=== PATIENT | female | born 2000 ===

== ENCOUNTER 2022-06-24 12:35 | Emergency (ER) | payer OTHER, SELFPAY ==
--- NOTE | ~2022-06-24 | XR_ITS ---
EXAMINATION: XR CHEST CLINICAL INFORMATION: Shortness of breath COMPARISON: None TECHNIQUE: 2 views of the chest were obtained. FINDINGS: Cardiac silhouette is normal in size. The lungs are well aerated. There is no lobar consolidation. No pleural effusion or pneumothorax. No acute osseous abnormality. XR/XR chest 2V IMPRESSION: No acute pulmonary pathology.
--- NOTE | 2022-06-24 12:44 | ED_ITS ---
HPI - SOB/Dyspnea General Chief Complaint: Dyspnea <ASHIA Pulliam - Last Filed: 06/24/22 12:52> Stated Complaint: SOB <ASHIA Pulliam - Last Filed: 06/24/22 12:52> Time Seen by Provider: 06/24/22 15:40 <ASHIA Pulliam - Last Filed: 06/24/22 12:52> Source: patient <Maria Ines Perry NP - Last Filed: 06/24/22 18:49> Mode of arrival: ambulatory <Maria Ines Perry NP - Last Filed: 06/24/22 18:49> Limitations: no limitations <Maria Ines Perry NP - Last Filed: 06/24/22 18:49> History of Present Illness HPI Narrative: 21-year-old female no significant past medical history presents to the emergency department with complaints of a 1 year history of shortness of breath. She has previously seen her primary care provider for this same complaint and ruled out for pulmonary disease. She was started on Wellbutrin for treatment of possible anxiety with no relief of symptoms per patient. She states her difficulty in breathing worsens at night causing her difficulty with sleeping. She denies sensation of waking and needing to catch her breath during the night. She denies excessive daytime sleepiness. She denies headache, vision changes, chest pain, nausea, vomiting, diarrhea, constipation, fever, chills. <Maria Ines Perry NP - Last Filed: 06/24/22 18:49> MD elicited complaint: shortness of breath <Maria Ines Perry NP - Last Filed: 06/24/22 18:49> Onset (ago): year(s) <Maria Ines Perry NP - Last Filed: 06/24/22 18:49> Timing: constant <Maria Ines Perry NP - Last Filed: 06/24/22 18:49> Severity: mild <Maria Ines Perry NP - Last Filed: 06/24/22 18:49> Exacerbating factors: lying flat <Maria Ines Perry NP - Last Filed: 06/24/22 18:49> Relieving factors: nothing <Maria Ines Perry NP - Last Filed: 06/24/22 18:49> Associated symptoms: denies other symptoms <Maria Ines Perry NP - Last Filed: 06/24/22 18:49> Treatment prior to arrival: none <Maria Ines Perry NP - Last Filed: 06/24/22 18:49> Related Data Home Medications: Previous Rx's Medication Instructions Recorded hydroxyzine HCl 25 mg tablet 25 mg PO QID PRN anxiety #9 tabs 06/24/22 <ASHIA Pulliam - Last Filed: 06/24/22 12:52> Allergies/Adverse Reactions: Allergies Allergy/AdvReac Type Severity Reaction Status Date / Time No Known Allergies Allergy Unverified 03/03/20 19:17 [No Known Allergies*] <ASHIA Pulliam - Last Filed: 06/24/22 12:52> Review of Systems Review of Systems: In addition to documented HPI above, the additional ROS was obtained: Constitutional: No Weight loss, No Fever, No Chills ENT/Mouth: No Ear Pain, No Nasal Congestion, No Sinus Pain, No Hoarseness, No sore throat, No Rhinorrhea, No Swallowing Difficulty Cardiovascular: No Chest Pain Respiratory: No Cough, No Sputum, No Wheezing Gastrointestinal: No Nausea, No Vomiting, No Diarrhea, No Constipation, No Abdominal pain Genitourinary: No Dysuria, No Urinary Frequency, No Hematuria, No Urinary Incontinence/retention, No Urgency, No Flank Pain Musculoskeletal: No joint pain, No Myalgias, No Joint Swelling Skin: No Skin Lesions, No rash Neuro: No Weakness, No Numbness, No Paresthesias <Maria Ines Perry NP - Last Filed: 06/24/22 18:49> Yes all other systems are reviewed and are negative <Maria Ines Perry NP - Last Filed: 06/24/22 18:49> PMF Past Medical History Attestation statement: The following information was validated with the patient. <Maria Ines Perry NP - Last Filed: 06/24/22 18:49> Source: old records reviewed <Maria Ines Perry NP - Last Filed: 06/24/22 18:49> Social History Social History: Social History Advance Directives: No Advance Directives Information Provided: No <ASHIA Pulliam - Last Filed: 06/24/22 12:52> Physical Exam Vital Signs: Vital Signs: Last Vital Signs Temp 98.2 F 06/24/22 15:42 Pulse 81 06/24/22 15:42 Resp 16 06/24/22 15:42 BP 109/68 06/24/22 15:42 Pulse Ox 99 06/24/22 15:42 O2 Del Method 06/24/22 15:42 BMI result Body Mass Index 25.7 <ASHIA Pulliam - Last Filed: 06/24/22 12:52> Vital Signs: Last Vital Signs Temp 98.2 F 06/24/22 15:42 Pulse 81 06/24/22 15:42 Resp 16 06/24/22 15:42 BP 109/68 06/24/22 15:42 Pulse Ox 99 06/24/22 15:42 O2 Del Method 06/24/22 15:42 BMI result Body Mass Index 25.7 <Maria Ines Perry NP - Last Filed: 06/24/22 18:49> Nursing notes and vital signs reviewed. GENERAL APPEARANCE: A&0 x 4, generally well appearing, no acute distress HENMT: Normal to inspection, atraumatic, face symmetrical. Normal external ears, nose, and oropharynx clear. EYE: PERRLA, EOM intact, structures appear normal NECK: Supple without lymphadenopathy. No stiffness or restricted ROM. CHEST: Normal to inspection HEART: Normal rate and regular rhythm, normal S1/S2, no M/R/G LUNGS: LS CTA, moving air well. Able to speak in complete sentences. No crackles, wheezes, or rhonchi auscultated ABDOMEN: Soft, nontender, nondistended. Normal bowel sounds noted BACK: No CVAT, no obvious deformity EXTREMITIES: Moving all extremities without difficulty. No cyanosis, clubbing, or edema. Normal capillary refill. NEUROLOGICAL: Alert and oriented, moving all 4 extremities with equal strength. CN not formally tested but appearing grossly intact. Observed to ambulate with normal gait. Cognition normal SKIN: Warm and dry without any lesions, rash, or visible sores PSYCH: Cooperative, normal affect, normal thought process <Maria Ines Perry NP - Last Filed: 06/24/22 18:49> Course Course Course Narrative: TOLU-12:45PM - 21yoF presenting to the ED c c/o of SOB x months. Associated Chest Pain, fast heart rate. Went to PCP in the past and had pulmonary testing asthma and was told it was not asthma. Then placed on meds for Wellbutrin for anxiety. Worse at night making unable to sleep. Denies dizziness, sputum production or leg swelling. On the Depo Shot for Control. Was using nicotine otherwise no other drugs. Patient requesting ultrasound of her Heart. Plan: COVID/RSV/flu swab, chest x-ray, EKG, labs all ordered at this time. Patient is stable to go back to the waiting room to be evaluated in the ED. <ASHIA Pulliam - Last Filed: 06/24/22 12:52> Medications Administered Discontinued Medications Generic Name Dose Route Start Last Admin Trade Name Freq PRN Reason Stop Dose Admin Hydroxyzine HCl 25 mg 06/24/22 16:05 06/24/22 16:40 Hydroxyzine Hcl 25 Mg Tablet PO 06/24/22 16:06 25 mg ONCE ONE Administration <ASHIA Pulliam - Last Filed: 06/24/22 12:52> Medications Administered Discontinued Medications Generic Name Dose Route Start Last Admin Trade Name Freq PRN Reason Stop Dose Admin Hydroxyzine HCl 25 mg 06/24/22 16:05 06/24/22 16:40 Hydroxyzine Hcl 25 Mg Tablet PO 06/24/22 16:06 25 mg ONCE ONE Administration <Maria Ines Perry NP - Last Filed: 06/24/22 18:49> Medical Decision Making Medical Decision Making [facility] Narrative: 21-year-old female no significant past medical history presents to the emergency department with complaints of a 1 year history of shortness of breath. She has previously seen her primary care provider for this same complaint and ruled out for pulmonary disease. She was started on Wellbutrin for treatment of possible anxiety with no relief of symptoms per patient. She states her difficulty in breathing worsens at night causing her difficulty with sleeping. Blood work and serology unremarkable. Chest x-ray showing no acute pulmonary pathology, cardiac silhouette is normal in size with lungs well aerated, and no pleural effusion or pneumothorax. EKG normal sinus rhythm at 76 beats per minute. History, physical, and diagnostic exams consistent with acute anxiety. H ydroxyzine 25 mg given for anxiety symptoms with moderate effect in relief of shortness of breath. Low suspicion for ACS or PE at this time. Patient is safe for discharge at this time with plans to continue hydroxyzine 25 mg 4 times a day as needed and recommendation for mental health counseling. HPI, PE, diagnostics, and plan discussed with patient and family with no unanswered questions at this time. Patient educated to return to the emergency department with new, worsening, or concerning emergent symptoms. Recommended to follow-up with her primary care provider and mental health counselor for further treatment and management. *Refer to Course for additional information on consultations, diagnostic interpretation, consultations, emergency department stay, conversations with patient and family, shared decision making with patient, and more information on medical decision making* <Maria Ines Perry NP - Last Filed: 06/24/22 18:49> Lab Data MDM Lab Attestation statement: I reviewed the patient's lab results. <Maria Ines Perry NP - Last Filed: 06/24/22 18:49> Result Diagrams: 06/24/22 14:21 06/24/22 14:20 <ASHIA Pulliam - Last Filed: 06/24/22 12:52> Labs: Lab Results 06/24/22 06/24/22 06/24/22 Range/Units 14:20 14:20 14:20 WBC (4.8-10.8) X10*3/uL RBC (4.20-5.50) X10*6/uL Hgb (12.0-16.0) g/dl Hct (37.0-47.0) % MCV (80.0-98.0) fL MCH (27.0-33.0) pg MCHC (31.0-35.0) g/dl RDW (11.0-16.0) % Plt Count (160-400) X10*3/uL MPV (9.4-12.3) fL Immature Gran % (Auto) (0.0-0.4) % Neut % (Auto) (45-73) % Lymph % (Auto) (20-40) % [place] % (Auto) (2-11) % Eos % (Auto) (0-4) % Baso % (Auto) (0-2) % Lymph # (Auto) (1.2-4.9) X10*3/uL [place] # (Auto) (0.1-1.2) X10*3/uL Eos # (Auto) (0.0-0.4) X10*3/uL Baso # (Auto) (0.0-0.2) X10*3/uL Abs Immat Gran (auto) (0.00-0.03) X10*3/uL Absolute Neuts (auto) (2.0-8.3) x10*3/uL Absolute Nucleated RBC (0.0-0.012) X10*3/uL Nucleated RBC % (auto) (0.0-0.2) /100WBC PT (10.0-13.1) SEC INR (0.9-1.1) Sodium 141 (135-145) mmol/L Potassium 4.3 (3.3-5.1) mmol/L Chloride 111 H (96-108) mmol/L Carbon Dioxide 22 (22-29) mmol/L Anion Gap 12 (12-20) BUN 15 (9-16) mg/dL Creatinine 0.75 (0.5-1.4) mg/dL Estim Creat Clear Calc 108.1 Estimated GFR > 60 Random Glucose 80 (60-115) mg/dL Calcium 9.0 (8.4-10.2) mg/dL Magnesium 2.1 (1.6-2.6) mg/dL Total Bilirubin 0.3 (0.0-1.0) mg/dL AST 22 (5-31) U/L ALT 15 (0-31) U/L Alkaline Phosphatase 66 (39-117) U/L Troponin I High Sens < 3.5 (<3.5-17.0) ng/L B-Natriuretic Peptide (<100) pg/mL Total Protein 7.2 (6.5-8.0) g/dL Albumin 4.3 (3.5-5.0) g/dL Lipase 21 (8-78) U/L TSH (0.32-4.0) uIU/mL Beta HCG, Quant mIU/mL Influenza Type A (PCR) NEGATIVE (Negative) Influenza Type B (PCR) NEGATIVE (Negative) RSV RNA Qual (PCR) NEGATIVE (Negative) SARS-CoV-2 RNA (RT-PCR) NEGATIVE (Negative) 06/24/22 06/24/22 06/24/22 Range/Units 14:20 14:20 14:20 WBC (4.8-10.8) X10*3/uL RBC (4.20-5.50) X10*6/uL Hgb (12.0-16.0) g/dl Hct (37.0-47.0) % MCV (80.0-98.0) fL MCH (27.0-33.0) pg MCHC (31.0-35.0) g/dl RDW (11.0-16.0) % Plt Count (160-400) X10*3/uL MPV (9.4-12.3) fL Immature Gran % (Auto) (0.0-0.4) % Neut % (Auto) (45-73) % Lymph % (Auto) (20-40) % [place] % (Auto) (2-11) % Eos % (Auto) (0-4) % Baso % (Auto) (0-2) % Lymph # (Auto) (1.2-4.9) X10*3/uL [place] # (Auto) (0.1-1.2) X10*3/uL Eos # (Auto) (0.0-0.4) X10*3/uL Baso # (Auto) (0.0-0.2) X10*3/uL Abs Immat Gran (auto) (0.00-0.03) X10*3/uL Absolute Neuts (auto) (2.0-8.3) x10*3/uL Absolute Nucleated RBC (0.0-0.012) X10*3/uL Nucleated RBC % (auto) (0.0-0.2) /100WBC PT (10.0-13.1) SEC INR (0.9-1.1) Sodium (135-145) mmol/L Potassium (3.3-5.1) mmol/L Chloride (96-108) mmol/L Carbon Dioxide (22-29) mmol/L Anion Gap (12-20) BUN (9-16) mg/dL Creatinine (0.5-1.4) mg/dL Estim Creat Clear Calc Estimated GFR Random Glucose (60-115) mg/dL Calcium (8.4-10.2) mg/dL Magnesium (1.6-2.6) mg/dL Total Bilirubin (0.0-1.0) mg/dL AST (5-31) U/L ALT (0-31) U/L Alkaline Phosphatase (39-117) U/L Troponin I High Sens (<3.5-17.0) ng/L B-Natriuretic Peptide 17 (<100) pg/mL Total Protein (6.5-8.0) g/dL Albumin (3.5-5.0) g/dL Lipase (8-78) U/L TSH 0.73 (0.32-4.0) uIU/mL Beta HCG, Quant < 2 mIU/mL Influenza Type A (PCR) (Negative) Influenza Type B (PCR) (Negative) RSV RNA Qual (PCR) (Negative) SARS-CoV-2 RNA (RT-PCR) (Negative) 06/24/22 06/24/22 Range/Units 14:21 14:21 WBC 4.5 L (4.8-10.8) X10*3/uL RBC 4.58 (4.20-5.50) X10*6/uL Hgb 14.0 (12.0-16.0) g/dl Hct 41.5 (37.0-47.0) % MCV 90.6 (80.0-98.0) fL MCH 30.6 (27.0-33.0) pg MCHC 33.7 (31.0-35.0) g/dl RDW 11.9 (11.0-16.0) % Plt Count 190 (160-400) X10*3/uL MPV 10.5 (9.4-12.3) fL Immature Gran % (Auto) 0.2 (0.0-0.4) % Neut % (Auto) 52.1 (45-73) % Lymph % (Auto) 39.6 (20-40) % [place] % (Auto) 6.4 (2-11) % Eos % (Auto) 1.3 (0-4) % Baso % (Auto) 0.4 (0-2) % Lymph # (Auto) 1.8 (1.2-4.9) X10*3/uL [place] # (Auto) 0.3 (0.1-1.2) X10*3/uL Eos # (Auto) 0.1 (0.0-0.4) X10*3/uL Baso # (Auto) 0.0 (0.0-0.2) X10*3/uL Abs Immat Gran (auto) 0.01 (0.00-0.03) X10*3/uL Absolute Neuts (auto) 2.3 (2.0-8.3) x10*3/uL Absolute Nucleated RBC 0.000 (0.0-0.012) X10*3/uL Nucleated RBC % (auto) 0.0 (0.0-0.2) /100WBC PT 11.7 (10.0-13.1) SEC INR 1.0 (0.9-1.1) Sodium (135-145) mmol/L Potassium (3.3-5.1) mmol/L Chloride (96-108) mmol/L Carbon Dioxide (22-29) mmol/L Anion Gap (12-20) BUN (9-16) mg/dL Creatinine (0.5-1.4) mg/dL Estim Creat Clear Calc Estimated GFR Random Glucose (60-115) mg/dL Calcium (8.4-10.2) mg/dL Magnesium (1.6-2.6) mg/dL Total Bilirubin (0.0-1.0) mg/dL AST (5-31) U/L ALT (0-31) U/L Alkaline Phosphatase (39-117) U/L Troponin I High Sens (<3.5-17.0) ng/L B-Natriuretic Peptide (<100) pg/mL Total Protein (6.5-8.0) g/dL Albumin (3.5-5.0) g/dL Lipase (8-78) U/L TSH (0.32-4.0) uIU/mL Beta HCG, Quant mIU/mL Influenza Type A (PCR) (Negative) Influenza Type B (PCR) (Negative) RSV RNA Qual (PCR) (Negative) SARS-CoV-2 RNA (RT-PCR) (Negative) <ASHIA Pulliam - Last Filed: 06/24/22 12:52> Lab Results 06/24/22 06/24/22 06/24/22 Range/Units 14:20 14:20 14:20 WBC (4.8-10.8) X10*3/uL RBC (4.20-5.50) X10*6/uL Hgb (12.0-16.0) g/dl Hct (37.0-47.0) % MCV (80.0-98.0) fL MCH (27.0-33.0) pg MCHC (31.0-35.0) g/dl RDW (11.0-16.0) % Plt Count (160-400) X10*3/uL MPV (9.4-12.3) fL Immature Gran % (Auto) (0.0-0.4) % Neut % (Auto) (45-73) % Lymph % (Auto) (20-40) % [place] % (Auto) (2-11) % Eos % (Auto) (0-4) % Baso % (Auto) (0-2) % Lymph # (Auto) (1.2-4.9) X10*3/uL [place] # (Auto) (0.1-1.2) X10*3/uL Eos # (Auto) (0.0-0.4) X10*3/uL Baso # (Auto) (0.0-0.2) X10*3/uL Abs Immat Gran (auto) (0.00-0.03) X10*3/uL Absolute Neuts (auto) (2.0-8.3) x10*3/uL Absolute Nucleated RBC (0.0-0.012) X10*3/uL Nucleated RBC % (auto) (0.0-0.2) /100WBC PT (10.0-13.1) SEC INR (0.9-1.1) Sodium 141 (135-145) mmol/L Potassium 4.3 (3.3-5.1) mmol/L Chloride 111 H (96-108) mmol/L Carbon Dioxide 22 (22-29) mmol/L Anion Gap 12 (12-20) BUN 15 (9-16) mg/dL Creatinine 0.75 (0.5-1.4) mg/dL Estim Creat Clear Calc 108.1 Estimated GFR > 60 Random Glucose 80 (60-115) mg/dL Calcium 9.0 (8.4-10.2) mg/dL Magnesium 2.1 (1.6-2.6) mg/dL Total Bilirubin 0.3 (0.0-1.0) mg/dL AST 22 (5-31) U/L ALT 15 (0-31) U/L Alkaline Phosphatase 66 (39-117) U/L Troponin I High Sens < 3.5 (<3.5-17.0) ng/L B-Natriuretic Peptide (<100) pg/mL Total Protein 7.2 (6.5-8.0) g/dL Albumin 4.3 (3.5-5.0) g/dL Lipase 21 (8-78) U/L TSH (0.32-4.0) uIU/mL Beta HCG, Quant mIU/mL Influenza Type A (PCR) NEGATIVE (Negative) Influenza Type B (PCR) NEGATIVE (Negative) RSV RNA Qual (PCR) NEGATIVE (Negative) SARS-CoV-2 RNA (RT-PCR) NEGATIVE (Negative) 06/24/22 06/24/22 06/24/22 Range/Units 14:20 14:20 14:20 WBC (4.8-10.8) X10*3/uL RBC (4.20-5.50) X10*6/uL Hgb (12.0-16.0) g/dl Hct (37.0-47.0) % MCV (80.0-98.0) fL MCH (27.0-33.0) pg MCHC (31.0-35.0) g/dl RDW (11.0-16.0) % Plt Count (160-400) X10*3/uL MPV (9.4-12.3) fL Immature Gran % (Auto) (0.0-0.4) % Neut % (Auto) (45-73) % Lymph % (Auto) (20-40) % [place] % (Auto) (2-11) % Eos % (Auto) (0-4) % Baso % (Auto) (0-2) % Lymph # (Auto) (1.2-4.9) X10*3/uL [place] # (Auto) (0.1-1.2) X10*3/uL Eos # (Auto) (0.0-0.4) X10*3/uL Baso # (Auto) (0.0-0.2) X10*3/uL Abs Immat Gran (auto) (0.00-0.03) X10*3/uL Absolute Neuts (auto) (2.0-8.3) x10*3/uL Absolute Nucleated RBC (0.0-0.012) X10*3/uL Nucleated RBC % (auto) (0.0-0.2) /100WBC PT (10.0-13.1) SEC INR (0.9-1.1) Sodium (135-145) mmol/L Potassium (3.3-5.1) mmol/L Chloride (96-108) mmol/L Carbon Dioxide (22-29) mmol/L Anion Gap (12-20) BUN (9-16) mg/dL Creatinine (0.5-1.4) mg/dL Estim Creat Clear Calc Estimated GFR Random Glucose (60-115) mg/dL Calcium (8.4-10.2) mg/dL Magnesium (1.6-2.6) mg/dL Total Bilirubin (0.0-1.0) mg/dL AST (5-31) U/L ALT (0-31) U/L Alkaline Phosphatase (39-117) U/L Troponin I High Sens (<3.5-17.0) ng/L B-Natriuretic Peptide 17 (<100) pg/mL Total Protein (6.5-8.0) g/dL Albumin (3.5-5.0) g/dL Lipase (8-78) U/L TSH 0.73 (0.32-4.0) uIU/mL Beta HCG, Quant < 2 mIU/mL Influenza Type A (PCR) (Negative) Influenza Type B (PCR) (Negative) RSV RNA Qual (PCR) (Negative) SARS-CoV-2 RNA (RT-PCR) (Negative) 06/24/22 06/24/22 Range/Units 14:21 14:21 WBC 4.5 L (4.8-10.8) X10*3/uL RBC 4.58 (4.20-5.50) X10*6/uL Hgb 14.0 (12.0-16.0) g/dl Hct 41.5 (37.0-47.0) % MCV 90.6 (80.0-98.0) fL MCH 30.6 (27.0-33.0) pg MCHC 33.7 (31.0-35.0) g/dl RDW 11.9 (11.0-16.0) % Plt Count 190 (160-400) X10*3/uL MPV 10.5 (9.4-12.3) fL Immature Gran % (Auto) 0.2 (0.0-0.4) % Neut % (Auto) 52.1 (45-73) % Lymph % (Auto) 39.6 (20-40) % [place] % (Auto) 6.4 (2-11) % Eos % (Auto) 1.3 (0-4) % Baso % (Auto) 0.4 (0-2) % Lymph # (Auto) 1.8 (1.2-4.9) X10*3/uL [place] # (Auto) 0.3 (0.1-1.2) X10*3/uL Eos # (Auto) 0.1 (0.0-0.4) X10*3/uL Baso # (Auto) 0.0 (0.0-0.2) X10*3/uL Abs Immat Gran (auto) 0.01 (0.00-0.03) X10*3/uL Absolute Neuts (auto) 2.3 (2.0-8.3) x10*3/uL Absolute Nucleated RBC 0.000 (0.0-0.012) X10*3/uL Nucleated RBC % (auto) 0.0 (0.0-0.2) /100WBC PT 11.7 (10.0-13.1) SEC INR 1.0 (0.9-1.1) Sodium (135-145) mmol/L Potassium (3.3-5.1) mmol/L Chloride (96-108) mmol/L Carbon Dioxide (22-29) mmol/L Anion Gap (12-20) BUN (9-16) mg/dL Creatinine (0.5-1.4) mg/dL Estim Creat Clear Calc Estimated GFR Random Glucose (60-115) mg/dL Calcium (8.4-10.2) mg/dL Magnesium (1.6-2.6) mg/dL Total Bilirubin (0.0-1.0) mg/dL AST (5-31) U/L ALT (0-31) U/L Alkaline Phosphatase (39-117) U/L Troponin I High Sens (<3.5-17.0) ng/L B-Natriuretic Peptide (<100) pg/mL Total Protein (6.5-8.0) g/dL Albumin (3.5-5.0) g/dL Lipase (8-78) U/L TSH (0.32-4.0) uIU/mL Beta HCG, Quant mIU/mL Influenza Type A (PCR) (Negative) Influenza Type B (PCR) (Negative) RSV RNA Qual (PCR) (Negative) SARS-CoV-2 RNA (RT-PCR) (Negative) <MariaI nes Perry NP - Last Filed: 06/24/22 18:49> Independent Interpretation I performed an independent interpretation of an: EKG <Maria Ines Perry NP - Last Filed: 06/24/22 18:49> Interpretation: I have independently interpreted the EKG as normal sinus rhythm at 76 beats per minute. Vent. Rate : 076 BPM ? ? Atrial Rate : 076 BPM ?? P-R Int : 114 ms? QRS Dur : 080 ms ? ? QT Int : 382 ms ? ? ? P-R-T Axes : 064 071 034 degrees ?? QTc Int : 429 ms ? Normal sinus rhythm Normal ECG No previous ECGs available <Maria Ines Perry NP - Last Filed: 06/24/22 18:49> Radiology Impression Discussion of test interpretation with radiology: I have reviewed the radiologist's reading. <Maria Ines Perry NP - Last Filed: 06/24/22 18:49> Radiologist Impression: Have independently reviewed the chest x-ray showing no cardiopulmonary pathology. EXAMINATION: XR CHEST CLINICAL INFORMATION: Shortness of breath COMPARISON: None TECHNIQUE: 2 views of the chest were obtained. FINDINGS: Cardiac silhouette is normal in size. The lungs are well aerated. There is no lobar consolidation. No pleural effusion or pneumothorax. No acute osseous abnormality. XR/XR chest 2V IMPRESSION: No acute pulmonary pathology. ? Dictated By: Yrn Lala MD Signed By: <Electronically signed by Yrn Lala MD in OV> 06/24/22 1342 DD/ 1302 TD/TT:? Change Coordinator: PD <Maria Ines Perry NP - Last Filed: 06/24/22 18:49> Discharge Plan Discharge Clinical Impression: Anxiety <ASHIA Pulliam - Last Filed: 06/24/22 12:52> Patient Disposition: Home, Self-Care <ASHIA Pulliam - Last Filed: 06/24/22 12:52> Instructions: Hydroxyzine (By mouth), Anxiety (ED) <ASHIA Pulliam - Last Filed: 06/24/22 12:52> Prescriptions: New hydroxyzine HCl 25 mg tablet 25 mg PO QID PRN (Reason: anxiety) Qty: 9 0RF <ASHIA Pulliam - Last Filed: 06/24/22 12:52> Referrals: [facility] [Provider Group] Haydee Finch MD [Primary Care Provider] - <ASHIA Pulliam - Last Filed: 06/24/22 12:52> Stand Alone Forms: Work/School Release <ASHIA Pulliam - Last Filed: 06/24/22 12:52> Interventions: ED Discharge Assessment Last Done: 06/24/22 17:17 <ASHIA Pulliam - Last Filed: 06/24/22 12:52> Discharge Date/Time: 06/24/22 17:22 <ASHIA Pulliam - Last Filed: 06/24/22 12:52> Print Language: Arabic <ASHIA Pulliam - Last Filed: 06/24/22 12:52>
[2022-06-24 12:47] VITALS: BP 135/85; PULSE 114; RESP 16; TEMP 36.4; O2SAT 99; BMI 25.7
--- NOTE | 2022-06-24 12:50 | ECG_ITS ---
Test Reason : SOB Blood Pressure : / mmHG Vent. Rate : 076 BPM Atrial Rate : 076 BPM P-R Int : 114 ms QRS Dur : 080 ms QT Int : 382 ms P-R-T Axes : 064 071 034 degrees QTc Int : 429 ms Normal sinus rhythm Normal ECG No previous ECGs available Referred By: Mariaelena Cassidy Electronically Signed By:Alistair Siu
--- OUTSIDE RECORDS SUMMARY | 2022-06-24 14:21 | XMS_ITS | Continuity of Care Document ---
:2000 Author Organization [facility] Address [address] [place] [id number] Care Team Providers Name Role Phone Haydee Finch MD Primary Care Physician Encounter [facility] [place](s[place] 09/18/19 - 09/19/[address] [id number]- [facility] Encounter Diagnosis Gastroenteritis (Final) - 09/19/19 Discharge Disposition: A-D/C Home Attending Physician: Nancy Werner MD Admitting Physician: Nancy Werner MD Referring Physician: Not on Staff, Referring MD Allergies, Adverse Reactions, Alerts No Known Medication Allergies Medications Flonase 50 mcg/inh nasal spray 2 sprays, Nares, Both, 2 times a day, in each nostril, # 1 each, 0 Refills, Maintenance, 07/23/16 19:52:15, Drury, 2 sprays Nares, Both 2 times a day,Instr:in each nostril Start Date: 07/23/16 Status: Orderedondansetron 4 mg oral tablet, disintegrating 1 tablet = 4 mg, By Mouth, Every 8 hours, PRN as needed for nausea/vomiting, # 15 tablet, 0 Refills,Maintenance, 09/19/19 5:57:00 EDT, DIS Tablet, [id number], 53.5, kg, 09/18/19 23:43:00 EDT, Dry Weight Start Date: 09/19/19 Status: Ordered Vital Signs Most recent to oldest [Reference 1 2 3 Range]: Weight 53.5 kg (09/18/19 11:43 PM) Oxygen Saturation [94-100 %] 100 % 100 % 100 % (09/19/19 4:58 AM) (09/19/19 3:04 AM) (09/18/19 11:43 PM) Pulse Rate [55-90 bpm] 75 bpm 70 bpm 71 bpm (09/19/19 4:58 AM) (09/19/19 3:04 AM) (09/18/19 11:43 PM) Blood Pressure [71-110/30-71 mm 92/56 mm Hg 95/51 mm Hg 108/64 mm Hg Hg] (09/19/19 4:58 AM) (09/19/19 3:04 AM) (09/18/19 11:43 PM) Respiratory Rate [16-30 br/min] 18 br/min 18 br/min 20 br/min (09/19/19 4:58 AM) (09/19/19 3:04 AM) (09/18/19 11:43 PM) Temperature [96.8-100.4 DegF] 98.2 DegF 98.6 DegF 98 .1 DegF (09/19/19 4:58 AM) (09/19/19 3:04 AM) (09/18/19 11:43 PM) Mode of Delivery (Oxygen) Room air Room air Room a ir (09/19/19 4:58 AM) (09/19/19 3:04 AM) (09/18/19 11:43 PM) Blood pressure sites Arm, left Arm, left Arm, left (09/19/19 4:58 AM) (09/19/19 3:04 AM) (09/18/19 11:43 PM) Temperature Route Oral Oral Oral (09/19/19 4:58 AM) (09/19/19 3:04 AM) (09/18/19 11:43 PM) Dry Weight 53.5 kg (09/18/19 11:43 PM) Social History Social History Type Response Smoking Status Never smoker entered on: 07/23/16 Sex
[2022-06-24 14:29] LABS: MANUAL DIFF FLAG NO
[2022-06-24 14:30] LABS: Basophils Percent Auto 0.4 % (0-2); Eosinophils Absolute Auto 0.1 X10*3/uL (0.0-0.4); Eosinophils Percent Auto 1.3 % (0-4); Hematocrit 41.5 % (37.0-47.0); Imm Gran Abs Auto 0.01 X10*3/uL (0.00-0.03); Imm Gran Pct Auto 0.2 % (0.0-0.4); Lymphocytes Absolute Auto 1.8 X10*3/uL (1.2-4.9); Lymphocytes Percent Auto 39.6 % (20-40); Mean Corpuscular HGB Conc 33.7 g/dl (31.0-35.0); Mean Corpuscular Hemoglobin 30.6 pg (27.0-33.0); Mean Corpuscular Volume 90.6 fL (80.0-98.0); Mean Platelet Volume 10.5 fL (9.4-12.3); Monocytes Absolute Auto 0.3 X10*3/uL (0.1-1.2); Monocytes Percent Auto 6.4 % (2-11); Neutrophils Absolute Auto 2.3 x10*3/uL (2.0-8.3); Neutrophils Percent Auto 52.1 % (45-73); Platelet Count 190 X10*3/uL (160-400); Red Blood Count 4.58 X10*6/uL (4.20-5.50); Red Cell Distribution Width 11.9 % (11.0-16.0); White Blood Count 4.5 X10*3/uL (4.8-10.8)
[2022-06-24 14:37] LABS: Prothrombin Time 11.7 SEC (10.0-13.1)
[2022-06-24 14:48] LABS: Alanine Aminotransferase 15 U/L (0-31); Albumin Level 4.3 g/dL (3.5-5.0); Alkaline Phosphatase 66 U/L (39-117); Anion Gap 12 (12-20); Aspartate Amino Transferase 22 U/L (5-31); Bilirubin Total 0.3 mg/dL (0.0-1.0); Blood Urea Nitrogen 15 mg/dL (9-16); Carbon Dioxide 22 mmol/L (22-29); Chloride 111 mmol/L (96-108); Creatinine Clr Calc Pharmacy 108.1; Estimated Glomerular Filt Rate > 60; Glucose Random 80 mg/dL (60-115); Lipase 21 U/L (8-78); Magnesium 2.1 mg/dL (1.6-2.6); Potassium 4.3 mmol/L (3.3-5.1); Sodium 141 mmol/L (135-145); Total Protein 7.2 g/dL (6.5-8.0)
[2022-06-24 14:53] LABS: B Type Natriuretic Peptide 17 pg/mL (<100)
[2022-06-24 14:58] LABS: HCG Quantitative < 2 mIU/mL; Troponin-I High Sensitivity < 3.5 ng/L (<3.5-17.0)
[2022-06-24 15:05] LABS: Influenza A PCR NEGATIVE (Negative); Influenza B PCR NEGATIVE (Negative); Resp Syncy Virus RNA Qual PCR NEGATIVE (Negative); SARS COV2 PCR INHOUSE NEGATIVE (Negative)
[2022-06-24 15:09] LABS: TSH reflex Free T4 0.73 uIU/mL (0.32-4.0)
[2022-06-24 15:42] VITALS: BP 109/68; PULSE 81; RESP 16; TEMP 36.8; O2SAT 99
[2022-06-24] MEDS: hydrOXYzine HCL 25 MG TABLET PO (16:40)
== END 2022-06-24 17:22 | disposition home or self-care (01) ==
PROVIDERS: Physician Assistant Medical; Emergency Provider Emergency Medicine Emergency Medical Services; PCP Pediatrics
DX: F41.1 Generalized anxiety disorder (principal); F43.0 Acute stress reaction; R06.02 Shortness of breath; Z20.822 Contact with and (suspected) exposure to COVID-19; Z20.828 Contact with and (suspected) exposure to other viral communicable diseases; Z79.899 Other long term (current) drug therapy
CPT/HCPCS: 0241U; 36415; 71046; 80053; 83690; 83735; 83880; 84443; 84484; 84702; 85025; 85610; 93005; 99283

== ENCOUNTER 2022-08-22 15:09 | Emergency (ER) | payer OTHER, SELFPAY ==
--- NOTE | ~2022-08-22 | XR_ITS ---
EXAMINATION: XR FOOT, LEFT XR ANKLE, LEFT CLINICAL INFORMATION: Pain status post injury COMPARISON: None TECHNIQUE: 3 views of the left foot. 3 views of the left ankle. FINDINGS: Left foot: There is a nondisplaced fracture at the base of the fifth metatarsal at the location of an avulsion fracture. No additional fractures. Alignment maintained. Joint spaces are maintained. Mild overlying soft tissue swelling at the fracture site. Left ankle: No additional fractures are seen. The ankle mortise is congruent. No ankle joint effusion. The soft tissues of the ankle are unremarkable. XR/XR ankle LT min 3V IMPRESSION: Nondisplaced avulsion fracture at the base of the fifth metatarsal.
--- NOTE | ~2022-08-22 | XR_ITS ---
EXAMINATION: XR FOOT, LEFT XR ANKLE, LEFT CLINICAL INFORMATION: Pain status post injury COMPARISON: None TECHNIQUE: 3 views of the left foot. 3 views of the left ankle. FINDINGS: Left foot: There is a nondisplaced fracture at the base of the fifth metatarsal at the location of an avulsion fracture. No additional fractures. Alignment maintained. Joint spaces are maintained. Mild overlying soft tissue swelling at the fracture site. Left ankle: No additional fractures are seen. The ankle mortise is congruent. No ankle joint effusion. The soft tissues of the ankle are unremarkable. XR/XR foot LT min 3V IMPRESSION: Nondisplaced avulsion fracture at the base of the fifth metatarsal.
[2022-08-22 15:21] VITALS: BP 114/55; PULSE 103; RESP 16; TEMP 37; O2SAT 99; BMI 26.5
--- NOTE | 2022-08-22 15:22 | ED_ITS ---
HPI - Extremity Injury (Lower) General Chief Complaint: Extremity Injury, Lower <ASHIA Rodriguez Last Filed: 08/22/22 15:26> Stated Complaint: Left foot injury <ASHIA Rodriguez Last Filed: 08/22/22 15:26> Time Seen by Provider: 08/22/22 17:02 <ASHIA Rodriguez Last Filed: 08/22/22 15:26> Source: patient <ASHIA Boyd Last Filed: 08/22/22 18:16> Mode of arrival: ambulatory <ASHIA Boyd Last Filed: 08/22/22 18:16> Limitations: no limitations <ASHIA Boyd Last Filed: 08/22/22 18:16> History of Present Illness HPI Narrative: Patient is a 21 year old assigned female at with no reported medical history presenting to the emergency department today with left foot pain. Patient states that this morning she was on her way to work when she tripped and landed her left foot inverted. Patient denies hitting her head. Patient denies any loss of consciousness from the incident. Patient denies any dizziness, lightheadedness, abdominal pain, nausea, vomiting, fever, chills, blurry vision, double vision, loss of vision, chest pain, difficulty breathing, shortness of breath, back pain, night sweats, pain with urination, increased urinary frequency, increased urinary urgency, blood in her urine or stool, syncope or a near syncopal episode, bowel incontinence, bladder incontinence, bowel retention, bladder retention, or any other complaints at this time. <ASHIA Boyd - Last Filed: 08/22/22 18:16> MD complaint: foot injury <ASHIA Boyd Last Filed: 08/22/22 18:16> Onset (ago): hour(s) <ASHIA Boyd Last Filed: 08/22/22 18:16> Type of Injury: inversion <ASHIA Boyd Last Filed: 08/22/22 18:16> Place: home <ASHIA Boyd Last Filed: 08/22/22 18:16> Severity: mild <ASHIA Boyd Last Filed: 08/22/22 18:16> Severity scale (1-10): 2 <ASHIA Boyd Last Filed: 08/22/22 18:16> Relieving factors: nothing <ASHIA Boyd Last Filed: 08/22/22 18:16> Exacerbating factors: nothing <ASHIA Boyd - Last Filed: 08/22/22 18:16> Other symptoms: none <ASHIA Boyd - Last Filed: 08/22/22 18:16> Related Data Home Medications: Previous Rx's Medication Instructions Recorded hydroxyzine HCl 25 mg tablet 25 mg PO QID PRN anxiety #9 tabs 06/24/22 <ASHIA Rodriguez - Last Filed: 08/22/22 15:26> Allergies/Adverse Reactions: Allergies Allergy/AdvReac Type Severity Reaction Status Date / Time No Known Allergies Allergy Verified 08/22/22 15:25 [No Known Allergies*] <ASHIA Rodriguez - Last Filed: 08/22/22 15:26> Review of Systems Constitutional: Constitutional: Reports no additional constitutional complaints, Denies chills, Denies fever(s) and Denies night sweats <ASHIA Boyd - Last Filed: 08/22/22 18:16> Eyes: Eyes: Reports no additional eye complaints, Denies blurry vision, Denies change in vision, Denies diplopia, Denies eye discharge, Denies loss of vision and Denies eye pain <ASHIA Boyd - Last Filed: 08/22/22 18:16> ENT: Denies dizziness <ASHIA Boyd - Last Filed: 08/22/22 18:16> Cardiovascular: Cardiovascular: Reports no additional cardiovascular complaints, Denies chest pain, Denies lightheadedness, Denies Loss of Consciousness and Denies dyspnea <ASHIA Boyd - Last Filed: 08/22/22 18:16> Respiratory: Respiratory: Reports no additional respiratory complaints and Denies dyspnea <ASHIA Boyd - Last Filed: 08/22/22 18:16> Gastrointestinal: Gastrointestinal: Reports no additional gastrointestinal complaints, Denies abdominal pain, Denies melena, Denies hematochezia, Denies change in bowel habits and Denies change in stool character <ASHIA Boyd - Last Filed: 08/22/22 18:16> Genitourinary: Genitourinary: Denies hematuria, Denies urinary frequency, Denies dysuria, Denies urinary incontinence, Denies urinary hesitancy and Denies urinary urgency <ASHIA Boyd - Last Filed: 08/22/22 18:16> Musculoskeletal: Musculoskeletal: Reports no additional musculoskeletal complaints, Denies numbness and Denies tingling <ASHIA Boyd - Last Filed: 08/22/22 18:16> Comments: left foot pain <ASHIA Boyd - Last Filed: 08/22/22 18:16> Neurologic: Denies dizziness, Denies loss of vision, Denies numbness and Denies tingling <ASHIA Boyd - Last Filed: 08/22/22 18:16> Psychiatric: Psychiatric: Reports no additional psychiatric complaints <ASHIA Boyd - Last Filed: 08/22/22 18:16> Endocrine: Endocrine: Reports no additional endocrine complaints <ASHIA Boyd - Last Filed: 08/22/22 18:16> Hematologic/Lymphatic: Hematologic/Lymphatic: Reports no additional hematologic/lymphatic complaints <ASHIA Boyd - Last Filed: 08/22/22 18:16> Allergic/Immunologic: Allergic/Immunologic: Reports no additional allergic/immunologic complaints <ASHIA Boyd - Last Filed: 08/22/22 18:16> [facility] Past Medical History Attestation statement: The following information was validated with the patient. <ASHIA Boyd - Last Filed: 08/22/22 18:16> Source: old records reviewed and nursing notes reviewed <ASHIA Boyd - Last Filed: 08/22/22 18:16> Social History Social History: Social History Advance Directives: No Advance Directives Information Provided: No <ASHIA Rodriguez - Last Filed: 08/22/22 15:26> Physical Exam Vital Signs: Vital Signs: Last Vital Signs Temp 98.6 F 08/22/22 15:21 Pulse 103 H 08/22/22 15:21 Resp 16 08/22/22 15:21 BP 114/55 L 08/22/22 15:21 Pulse Ox 99 08/22/22 15:21 O2 Del Method 08/22/22 15:21 BMI result Body Mass Index 26.5 <ASHIA Rodriguez - Last Filed: 08/22/22 15:26> Vital Signs: Last Vital Signs Temp 98.6 F 08/22/22 15:21 Pulse 103 H 08/22/22 15:21 Resp 16 08/22/22 15:21 BP 114/55 L 08/22/22 15:21 Pulse Ox 99 08/22/22 15:21 O2 Del Method 08/22/22 15:21 BMI result Body Mass Index 26.5 <ASHIA Boyd - Last Filed: 08/22/22 18:16> Const: General: cooperative, no acute distress, alert and awake <ASHIA Boyd - Last Filed: 08/22/22 18:16> Nutritional Appearance: well nourished <ASHIA Boyd - Last Filed: 08/22/22 18:16> Orientation/consciousness: patient oriented x3 <ASHIA Boyd - Last Filed: 08/22/22 18:16> Limitations: no limitations <ASHIA Boyd - Last Filed: 08/22/22 18:16> HEENT: Head: Yes normal to inspection and Yes atraumatic <ASHIA Boyd - Last Filed: 08/22/22 18:16> Ears: hearing grossly normal bilaterally and external ears normal <ASHIA Boyd - Last Filed: 08/22/22 18:16> General nose exam: Normal external nose present, no nasal discharge noted and no epistaxis <ASHIA Boyd - Last Filed: 08/22/22 18:16> Face and sinus: Yes normal facial exam, No abrasion and No laceration <ASHIA Boyd - Last Filed: 08/22/22 18:16> Mouth: Normal oral and palatal mucosa present, no drooling and no muffled voice <ASHIA Boyd - Last Filed: 08/22/22 18:16> Eyes: General: appearance normal, both eyes and all related structures <ASHIA Boyd - Last Filed: 08/22/22 18:16> Periorbital: periorbital findings normal <Juani Salinas PA - Last Filed: 08/22/22 18:16> Eyelids: Yes eyelids normal <Juani Salinas PA - Last Filed: 08/22/22 18:16> Conjunctivae: conjunctivae normal <Juani Salinas PA - Last Filed: 08/22/22 18:16> Pupils: Equal, round and reactive pupils present <Juani Salinas PA - Last Filed: 08/22/22 18:16> EOM: EOMs intact bilaterally <Juani Salinas PA - Last Filed: 08/22/22 18:16> Neck: Neck: Yes normal visual inspection, Yes full ROM and Yes no lym phadenopathy <Juani Salinas PA - Last Filed: 08/22/22 18:16> Chest: Chest palpation & inspection: normal inspection of the chest <Juani Salinas PA - Last Filed: 08/22/22 18:16> Resp: Effort & Inspection: normal respiratory effort and able to speak in complete sentences <Juani Ocamponancy PA - Last Filed: 08/22/22 18:16> Auscultation: clear to auscultation bilaterally <Juani Salinas PA - Last Filed: 08/22/22 18:16> Cardio: Rate: regular rate <Juani Ocamponancy PA - Last Filed: 08/22/22 18:16> Rhythm: regular rhythm <Juani Salinas PA - Last Filed: 08/22/22 18:16> GI: Inspection: Yes normal to inspection <Juani Ocamponancy PA - Last Filed: 08/22/22 18:16> Neuro: General: patient oriented x3 and moves all extremities <Juani Ocamponancy PA - Last Filed: 08/22/22 18:16> Cranial nerves: Yes Equal, round and reactive pupils present <Juani Ocamponancy PA - Last Filed: 08/22/22 18:16> Cognition (Neuro): normal cognition <Juani Salinas PA - Last Filed: 08/22/22 18:16> Motor exam (neuro): 5/5 motor strength present throughout <Juani Ocamponancy PA - Last Filed: 08/22/22 18:16> Sensory Exam: Normal double simultaneous stimulation for sensation <ASHIA Boyd - Last Filed: 08/22/22 18:16> Coordination: [id number] test normal <ASHIA Boyd - Last Filed: 08/22/22 18:16> Extrem: Other: minimal swelling to the lateral aspect of the left foot <ASHIA Boyd - Last Filed: 08/22/22 18:16> General: Yes full ROM and Yes capillary refill normal <ASHIA Boyd - Last Filed: 08/22/22 18:16> Psych: Appearance: grossly normal <ASHIA Boyd - Last Filed: 08/22/22 18:16> Mental Status: mental status grossly normal <ASHIA Boyd - Last Filed: 08/22/22 18:16> Affect: normal affect <ASHIA Boyd Last Filed: 08/22/22 18:16> Attitude: cooperative <ASHIA Boyd - Last Filed: 08/22/22 18:16> Thought process: Normal thought process present <ASHIA Boyd Last Filed: 08/22/22 18:16> Thought content: Normal thought content present <ASHIA Boyd - Last Filed: 08/22/22 18:16> Insight: Good insight present (Psych) <ASHIA Boyd - Last Filed: 08/22/22 18:16> Course Course Course Narrative: RME - [id number]-female presenting to the ER with complaints of left ankle pain since today. Patient states that she accidentally inverted her left ankle and fell to the ground while walking to her car outside. Patient states that she was able to bear weight on her left foot and ankle but this causes her pain. She presents with her own crutches, and has been taking ibuprofen which provided her with some relief. Plan - Xray left foot and ankle. <ASHIA Rodriguez - Last Filed: 08/22/22 15:26> Medical Decision Making Medical Decision Making MDM Narrative: Patient is a 21 year old assigned female at with no reported medical history presenting to the emergency department today with left foot pain. Patient's physical exam showed minimal swelling to the lateral aspect of the lef t foot. Patient's left foot x-ray showed an avulsion fracture of the 5th metatarsal. Patient's left foot was placed in a walking boot. Patient already had crutches. I explained my physical exam findings as well as all test results to the patient. I answered all questions asked by the patient. I stressed the importance of the patient taking her medication as prescribed. I stressed the importance of the patient following up with her primary care provider and an orthopedic provider. I stressed the importance of the patient returning to the emergency department immediately if her symptoms were to worsen or if she were to develop any dizziness, shortness of breath, difficulty breathing, chest pain, blurry vision, loss of vision, nausea, vomiting, abdominal pain, fever, chills, back pain, or any other complaints. Patient verbalized agreement and understanding with this treatment plan and discharge. <ASHIA Boyd Last Filed: 08/22/22 18:16> Differential Diagnosis Differential Diagnoses: The differential diagnosis associated with the presentation includes <ASHIA Boyd Last Filed: 08/22/22 18:16> foot fracture <ASHIA Boyd Last Filed: 08/22/22 18:16> Independent Interpretation I performed an independent interpretation of an: Plain X-Ray <ASHIA Boyd Last Filed: 08/22/22 18:16> Interpretation: My interpretation is in agreement with the radiologist's impression of this imaging study. ------ EXAMINATION: XR FOOT, LEFT XR ANKLE, LEFT CLINICAL INFORMATION: Pain status post injury? COMPARISON: None? TECHNIQUE: 3 views of the left foot. 3 views of the left ankle.? FINDINGS: Left foot: There is a nondisplaced fracture at the base of the fifth metatarsal at the location of an avulsion fracture. No additional fractures. Alignment maintained. Joint spaces are maintained. Mild overlying soft tissue swelling at the fracture site. Left ankle: No additional fractures are seen. The ankle mortise is congruent. No ankle joint effusion. The soft tissues of the ankle are unremarkable.? XR/XR foot LT min 3V IMPRESSION: Nondisplaced avulsion fracture at the base of the fifth metatarsal. Dictated By: Jasper Vargas MD Signed By: Electronically signed by Jasper Vargas MD 08/22/22 1628 <ASHIA Body - Last Filed: 08/22/22 18:16> Procedures Orthopedic Splinting/Casting Injury #1: Side: left <ASHIA Boyd - Last Filed: 08/22/22 18:16> Lower Extremity Injury Location: foot <ASHIA Boyd Last Filed: 08/22/22 18:16> Lower Extremity Immobilizer: boot orthosis <ASHIA Boyd - Last Filed: 08/22/22 18:16> Discharge Plan Discharge Clinical Impression: Foot fracture <ASHIA Rodriguez - Last Filed: 08/22/22 15:26> Patient Disposition: Home, Self-Care <ASHIA Rodriguez - Last Filed: 08/22/22 15:26> Instructions: Crutch Instructions (ED), Foot Fracture in Adults (ED) <ASHIA Rodriguez - Last Filed: 08/22/22 15:26> Additional Instructions: Follow up with your primary care provider and an orthopedist. Return to the emergency department immediately if your symptoms worsen or if you develop any dizziness, shortness of breath, difficulty breathing, chest pain, blurry vi barbara, loss of vision, nausea, vomiting, abdominal pain, fever, chills, back pain, or any other complaints. <ASHIA Rodriguez - Last Filed: 08/22/22 15:26> Prescriptions: No Action hydroxyzine HCl 25 mg tablet 25 mg PO QID PRN (Reason: anxiety) Qty: 9 0RF <ASHIA Rodriguez - Last Filed: 08/22/22 15:26> Referrals: [facility] [place] Family Medicine [Provider Group] (Call to establish and follow up with a primary care provider. If you already have a primary care provider, please follow up with them.) [facility] [Provider Group] (Call to establish and follow up with a primary care provider. If you already have a primary care provider, please follow up with them.) [facility] [Provider Group] (Call to establish and follow up with a primary care provider. If you already have a primary care provider, please follow up with them.) [facility] Surgeons [Provider Group] (Call to establish and follow up with an orthopedic provider.) <ASHIA Rodriguez - Last Filed: 08/22/22 15:26> Stand Alone Forms: Work/School Release <ASHIA Rodriguez - Last Filed: 08/22/22 15:26> Interventions: ED Discharge Assessment Last Done: 08/22/22 17:38 <ASHIA Rodriguez - Last Filed: 08/22/22 15:26> Discharge Date/Time: 08/22/22 17:40 <ASHIA Rodriguez - Last Filed: 08/22/22 15:26> Print Language: Telugu <ASHIA Rodriguez - Last Filed: 08/22/22 15:26>
== END 2022-08-22 17:40 | disposition home or self-care (01) ==
PROVIDERS: Emergency Provider Emergency Medicine; PCP Pediatrics
DX: S92.355A Nondisplaced fracture of fifth metatarsal bone, left foot, initial encounter for closed fracture (principal); X50.1XXA Overexertion from prolonged static or awkward postures, initial encounter; Y93.89 Activity, other specified; Y92.038 Other place in apartment as the place of occurrence of the external cause; Y99.9 Unspecified external cause status
CPT/HCPCS: 73610; 73630; 99283

== ENCOUNTER 2022-09-03 10:11 | Outpatient (REF) | payer OTHER, SELFPAY ==
--- NOTE | ~2022-09-03 | XR_ITS ---
EXAMINATION: XR FOOT, LEFT CLINICAL INFORMATION: Pain COMPARISON: X-ray 08/22/2022 TECHNIQUE: AP, lateral, and oblique views of the left foot. FINDINGS: Redemonstrated is a nondisplaced fracture at the base of the fifth metatarsal, stable in position and alignment. Question subtle intra-articular extension. No significant periosteal changes seen. Alignment is maintained. No other new/additional acute fractures seen. Joint spaces are maintained. There is lateral foot soft tissue swelling. XR/XR foot LT min 3V IMPRESSION: Nondisplaced fracture of the fifth metatarsal base, stable in position and alignment.
== END 2022-09-03 10:12 | disposition home or self-care (01) ==
LOC: HO.HOSX 10:11
PROVIDERS: Visit Provider Physician Assistant
DX: S92.352A Displaced fracture of fifth metatarsal bone, left foot, initial encounter for closed fracture (principal)
CPT/HCPCS: 73630; 99202

== ENCOUNTER 2022-09-24 08:14 | Outpatient (REF) | payer OTHER, SELFPAY ==
--- NOTE | ~2022-09-24 | XR_ITS ---
EXAMINATION: XR FOOT, LEFT CLINICAL INFORMATION: Pain. COMPARISON: Radiographs dated 09/03/2022. TECHNIQUE: AP, lateral, and oblique views of the left foot. FINDINGS: Bony alignment and mineralization are normal. A nondisplaced faint fracture line is redemonstrated of the base of the left fifth metatarsal bone. No dislocation is seen. There is no left ankle joint effusion. Boehler's angle is normal. There is no calcaneal spur. There is minimal bunion formation. No focal soft tissue swelling, gas or foreign body is seen. XR/XR foot LT min 3V IMPRESSION: A faint nondisplaced fracture line is seen of the base of the left fifth metatarsal bone.
== END 2022-09-24 08:15 | disposition home or self-care (01) ==
LOC: HO.HOSX 08:14
PROVIDERS: Visit Provider Physician Assistant
DX: S92.352D Displaced fracture of fifth metatarsal bone, left foot, subsequent encounter for fracture with routine healing (principal); X58.XXXD Exposure to other specified factors, subsequent encounter
CPT/HCPCS: 73630

== ENCOUNTER 2022-10-15 10:35 | Outpatient (REF) | payer OTHER, SELFPAY ==
--- NOTE | ~2022-10-15 | XR_ITS ---
EXAMINATION: XR FOOT, LEFT CLINICAL INFORMATION: Pain. COMPARISON: Radiographs dated 09/24/2022. TECHNIQUE: AP, lateral, and oblique views of the left foot. FINDINGS: A persistent nondisplaced faint fracture line is redemonstrated of the base of the left fifth metatarsal bone. No new fracture, dislocation or left ankle joint effusion is seen. Boehler's angle is normal. No calcaneal spur is seen. No focal soft tissue swelling, gas or foreign body is seen. XR/XR foot LT min 3V IMPRESSION: There is stable alignment of a nondisplaced hairline fracture of the base of the left fifth metatarsal bone.
== END 2022-10-15 10:36 | disposition home or self-care (01) ==
LOC: HO.HOSX 10:35
PROVIDERS: Visit Provider Physician Assistant
DX: S92.352D Displaced fracture of fifth metatarsal bone, left foot, subsequent encounter for fracture with routine healing (principal); X58.XXXD Exposure to other specified factors, subsequent encounter
CPT/HCPCS: 73630

== ENCOUNTER 2023-02-08 14:17 | Outpatient (AMB) | payer OTHER, SELFPAY ==
--- NOTE | 2023-02-08 14:21 | MHC.OFFVIS ---
Intake Vital Signs 02/08/23 14:22 Height 5 ft 3 in Weight 147 lb 11.355 oz BMI 26.2 BP 120/71 Blood Pressure Location Lt brachial Position Sitting Pulse 86 Intake Visit Reasons: discomfort with bowel movement Intake Note: Hanna presents in the office as a new patient for discomfort. CC: She states in general she will have on and off discomfort for 2 years. She gets both constipation and diarrhea. She has had blood a couple times. Recently she has been okay and has not seen any blood. Health Coach Required: No Allergies No Known Allergies [No Known Allergies*] Allergy (Verified 02/08/23 14:25) HPI HPI Comments History of Present Illness Details THis is a 22 y.o F with no significant PMH who is here for intermittent BRBPR and change in bowel habits. Reports that has had frequent abd discomfort bertrand triggered by stressful situation on and off x 2 years. More recently has noticed that stool also fluctuates from soft to loose. A few months ago, she also started noticing blood in toilet bowl and on wiping. Does not think was assoc with constipation or straining. Lasted atleast a week and then had episodes intermittently. Has not had any bleeding in 3 months. No fam hx of colon ca or IBD in first degree relatives. 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 No ext hemorrhoids, fissure or tag. Small-medium sized internal hemorrhoids. No blood on gloved finger. Ext: no peripheral edema Neuro: A/Ox3, noted to move all extremities spontaneously Psych: interacting appropriately Assessment & Plan Assessment & Plan (1) Change in bowel habit: Code(s): R19.4 - Change in bowel habit (2) Bright red rectal bleeding: Code(s): K62.5 - Hemorrhage of anus and rectum Plan Reviewed with the pt that overall presentation consistent with IBS and the few episodes of rectal bleeding may have been due to hemorrhoidal bleeding. DDx include IBD, celiac, hyperthyroidism etc. Work up ordered as below. Indication for endoscopic work up will be guided results of above. Follow up in 4 weeks Orders: Orders Calprotectin, Fecal 02/08/23 R19.4 - Change in bowel habit TSH reflex Free T4 02/08/23 R19.4 - Change in bowel habit Complete Blood Count no Diff 02/08/23 R19.4 - Change in bowel habit Immunoglobulin A 02/08/23 R19.4 - Change in bowel habit Transglutaminase IgA 02/08/23 R19.4 - Change in bowel habit Coding Level of Care Code New Pt Level 4 (50574) Diagnoses Change in bowel habit R19.4 Bright red rectal bleeding K62.5
[2023-02-08 14:22] VITALS: BP 120/71; PULSE 86; BMI 26.2
== END 2023-02-08 14:50 | disposition home or self-care (01) ==
PROVIDERS: PCP Pediatrics; Visit Provider Internal Medicine
DX: R19.4 Change in bowel habit (principal); K62.5 Hemorrhage of anus and rectum
CPT/HCPCS: 99204

== ENCOUNTER 2023-02-08 14:17 | Outpatient (REF) | payer OTHER, SELFPAY ==
[2023-02-08 15:19] LABS: Hematocrit 40.9 % (37.0-47.0); Mean Corpuscular HGB Conc 34.2 g/dl (31.0-35.0); Mean Corpuscular Volume 90.7 fL (80.0-98.0); Mean Platelet Volume 10.7 fL (9.4-12.3); Platelet Count 214 X10*3/uL (160-400); Red Blood Count 4.51 X10*6/uL (4.20-5.50); Red Cell Distribution Width 11.9 % (11.0-16.0); White Blood Count 6.9 X10*3/uL (4.8-10.8)
[2023-02-08 16:28] LABS: TSH reflex Free T4 0.52 uIU/mL (0.32-4.0)
[2023-02-11 11:38] LABS: Immunoglobulin A 144 mg/dL (47-310)
[2023-02-11 21:33] LABS: Transglutaminase IgA <1.0 U/mL
[2023-02-14 23:47] LABS: Calprotectin, Fecal 9 mcg/g
== END 2023-02-08 14:18 | disposition home or self-care (01) ==
LOC: HO.LAB 14:17
PROVIDERS: PCP Pediatrics; Visit Provider Internal Medicine
DX: R19.4 Change in bowel habit (principal); K62.5 Hemorrhage of anus and rectum
CPT/HCPCS: 36415; 82784; 83993; 84443; 85027; 86364

== ENCOUNTER 2023-03-06 13:51 | Outpatient (AMB) | payer OTHER, SELFPAY ==
--- NOTE | 2023-03-06 13:56 | MHC.OFFVIS ---
Intake Vital Signs 03/06/23 13:59 Height 5 ft 3 in Weight 145 lb 8.081 oz BMI 25.8 BP 113/61 Blood Pressure Location Lt brachial Position Sitting Pulse 74 Intake Visit Reasons: 4 week follow up Intake Note: Hanna presents in the office as a 4 week follow up. CC: She states that she wants to know if this was a IBS, should she get tested for Lactose intolerant? Was this a flare up? Allergies No Known Allergies [No Known Allergies*] Allergy (Verified 03/06/23 13:59) HPI HPI Comments History of Present Illness Details THis is a 22 y.o F with no significant PMH who is here for intermittent BRBPR and change in bowel habits. 02/08/23: Reports that has had frequent abd discomfort bertrand triggered by stressful situation on and off x 2 years. More recently has noticed that stool also fluctuates from soft to loose. A few months ago, she also started noticing blood in toilet bowl and on wiping. Does not think was assoc with constipation or straining. Lasted atleast a week and then had episodes intermittently. Has not had any bleeding in 3 months. No fam hx of colon ca or IBD in first degree relatives. 03/06/23: Reports spontaneous resolution of most of her sx. Has not noted any further rectal bleeding. Stools also now formed in fact more towards the constipation spectrum now. Reports increased abd bloating and flatulence after certain foods - and on detailed review of diet appears to be 2/2 dairy. Tells me she did try to eliminate dairy which helped her sx however as it is so ubiquitous was not able to keep up with strict dairy free diet. Resutls from recent work up reviewed which are all normal including fecal calpro. PFSH Social History Alcohol intake: current Alcohol intake frequency: holidays/special occasions only Patient Tobacco Use Status: Current someday Tobacco user Review of Systems Const All systems reviewed & are unremarkable except as noted in HPI and below Physical Exam Vital Signs: Last Vital Signs Pulse 74 03/06/23 13:59 BP 113/61 03/06/23 13:59 BMI result Body Mass Index 25.8 Gen appear: NAD HEENT: nonicteric, no cervical lymphadenopathy Chest: CTA CVS: Regular S1/S2 Abd: soft, nontender, nondistended, bowel sounds + Ext: no peripheral edema Neuro: A/Ox3, noted to move all extremities spontaneously Psych: interacting appropriately Assessment & Plan Assessment & Plan (1) Abdominal distention: Code(s): R14.0 - Abdominal distension (gaseous) (2) Bloating: Code(s): R14.0 - Abdominal distension (gaseous) Plan Sx most likely due to lactose intolerance. Other Ddx include SIBO, other carb malabsoprtion such as fructose/FODMAP. Advise adhering to dairy free diet Lactaid as needed Pt to call us in 2 weeks if sx do not improve with above, otherwise PRN follow up. Coding Level of Care Code Est Pt Level 4 (84079) Diagnoses Abdominal distention R14.0 Bloating R14.0
[2023-03-06 13:59] VITALS: BP 113/61; PULSE 74; BMI 25.8
== END 2023-03-06 15:28 | disposition home or self-care (01) ==
PROVIDERS: PCP Pediatrics; Visit Provider Internal Medicine
DX: R14.0 Abdominal distension (gaseous) (principal)
CPT/HCPCS: 99214

== ENCOUNTER → 2023-03-06 13:51 | Outpatient (BNVA) | payer OTHER, SELFPAY | PROVIDERS: PCP Pediatrics; Visit Provider Internal Medicine ==

== ENCOUNTER 2023-03-26 11:48 | Outpatient (REF) | payer OTHER, SELFPAY | END 2023-03-26 11:49 | disposition home or self-care (01) | LOC: HO.LNP 11:48 | PROVIDERS: PCP Pediatrics; Visit Provider Obstetrics & Gynecology | DX: N91.2 Amenorrhea, unspecified (principal); Z20.2 Contact with and (suspected) exposure to infections with a predominantly sexual mode of transmission | CPT/HCPCS: 0353U; 81025; 88142 ==

== ENCOUNTER 2023-03-26 11:48 | Outpatient (AMB) | payer OTHER, SELFPAY ==
--- NOTE | 2023-03-26 11:49 | MHC.OFFVIS ---
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 The patient was on Depo-Provera for 2 years . The patient has long-term history of mild hair growth the chin , No nipple discharge, No other associated symptoms. Last Pap smear PFSH Family History Other Diabetes Social History Household Members: Family Housing: House Alcohol intake: current Alcohol intake frequency: holidays/special occasions only Patient Tobacco Use Status: Current someday Tobacco user e-Cigarette/Vaping Use: Currently Using Frequency of e-Cigarette/Vaping Use: one daily Sexually active: Yes Sexual orientation: Straight/Heterosexual Gender identity: Female Review of Systems Const All systems reviewed & are unremarkable except as noted in HPI and below Physical Exam Vital Signs: Last Vital Signs BP 92/60 03/26/23 11:50 BMI result Body Mass Index 25.8 General: Yes no CVA tenderness External Female Exam: normal external appearance and normal appearance of the urethra Speculum Exam - Vagina: normal appearance of the vagina, normal palpation, no lesions and no masses Speculum Exam - Cervix: normal appearance of the cervix, normal palpation, no lesions, no masses and nontender Bimanual exam- vagina & uterus: normal bimanual exam, normal palpation, uterine size normal, normal palpation, uterine shape normal, No Cervical tenderness present and non-tender Bimanual Exam- Adnexa, other: normal adnexae Back/Spine/Pelvis Back: no CVA tenderness Results AMB Test Urine AMB Test Urine Negative Last Edit by Rowena Perez CMA on 03/26/23 12:00 Results Reviewed Results Reviewed: Laboratory Last Values [facility]st Clinic Negative 03/26/23 11:59 Assessment & Plan Assessment & Plan (1) Amenorrhea: Comment: With hirsutism Code(s): N91.2 - Amenorrhea, unspecified Plan: Pap smear taken, GC/CT done, UPT done in the office was negative. Discussed with the patient the possible causes of amenorrhea including but not limited to anovulation, thyroid and prolactin disorders, , end organ problems (uterine synechiae), medication side effects and others. The workup includes to start with UPT, was done in the office and was negative , this will be followed by a progesterone withdrawal test x 5 days if + bleeding this will be followed by TSH, PRL, 17 hydroxy progesterone and testosterone total and free, if negative then the diagnosis is anovulation. if no bleeding occurs will treat with Premarin x 21 days followed by Provera if no bleeding occurs will rule out Premature ovarian failure with FSH/LH Orders: Orders AMB HCG Urine Test Today Z32.02 - Encounter for test, result negative TSH reflex Free T4 Today N91.2 - Amenorrhea, unspecified Prolactin Today N91.2 - Amenorrhea, unspecified HCG Quantitative Today N91.2 - Amenorrhea, unspecified Testosterone, Free/Total Today N91.2 - Amenorrhea, unspecified 17 Hydroxyprogesterone Today N91.2 - Amenorrhea, unspecified Medications: New progesterone micronized (Prometrium) Take the pill 1 tablet a day for 5 days 200 mg PO BEDTIME 5 days 5 caps 0RF Coding Level of Care Code New Pt Level 3 (39226) Diagnoses Amenorrhea N91.2
[2023-03-26 11:50] VITALS: BP 92/60; BMI 25.8
== END 2023-03-26 12:19 | disposition home or self-care (01) ==
PROVIDERS: PCP Pediatrics; Visit Provider Obstetrics & Gynecology
DX: N91.2 Amenorrhea, unspecified (principal); Z32.02 Encounter for pregnancy test, result negative
CPT/HCPCS: 99203

== ENCOUNTER 2023-04-29 12:54 | Outpatient (REF) | payer OTHER, SELFPAY ==
[2023-04-29 15:37] LABS: HCG Quantitative < 2 mIU/mL; TSH reflex Free T4 1.18 uIU/mL (0.32-4.0)
[2023-04-30 08:39] LABS: Prolactin 7.6 ng/mL
[2023-05-08 14:54] LABS: Testosterone, Free 2.5 pg/mL (0.1-6.4); Testosterone, Total 27 ng/dL (2-45)
== END 2023-04-29 12:55 | disposition home or self-care (01) ==
LOC: HO.LAB 12:54
PROVIDERS: PCP Pediatrics; Visit Provider Obstetrics & Gynecology
DX: N91.2 Amenorrhea, unspecified (principal)
CPT/HCPCS: 36415; 83498; 84146; 84402; 84403; 84443; 84702

== ENCOUNTER 2023-04-29 12:54 | Outpatient (AMB) | payer OTHER, SELFPAY ==
--- NOTE | 2023-04-29 13:13 | MHC.OFFVIS ---
Intake Vital Signs 04/29/23 13:15 Height 5 ft 3 in Weight 145 lb 8.081 oz BMI 25.8 BP 110/70 Intake Visit Reasons: 2 weeks follow up amennohrea Aviation Tactical Readiness Officer Required: No Information Interpreted: non-clinical & clinical Accompanied by: Self / Same As Patient Allergies No Known Allergies [No Known Allergies*] Allergy (Verified 04/29/23 13:16) Is last menstrual period known: Yes Last menstrual period: 04/27/23 HPI HPI Comments History of Present Illness Details Presenting for follow-up after 5 days of Provera, the patient had a positive withdrawal test. PFSH Family History Father Diabetes Social History Household Members: Family Housing: House Alcohol intake: current Alcohol intake frequency: holidays/special occasions only Patient Tobacco Use Status: Current someday Tobacco user e-Cigarette/Vaping Use: Currently Using Sexual orientation: Straight/Heterosexual Gender identity: Female Female Reproductive History Menstrual Date of last menstrual period: 04/27/23 Review of Systems Const All systems reviewed & are unremarkable except as noted in HPI and below Reports as per HPI and Reports no additional complaints GI Reports no additional complaints Reports no additional complaints Physical Exam Vital Signs: Last Vital Signs BP 110/70 04/29/23 13:15 BMI result Body Mass Index 25.8 Assessment & Plan Assessment & Plan (1) Amenorrhea: Comment: With hirsutism Code(s): N91.2 - Amenorrhea, unspecified Plan: Since progesterone withdrawal test was positive will order TSH, hCG, prolactin, 17 hydroxyprogesterone and total/free testosterone. Instructions given the patient to schedule a 2 week follow-up appointment. All questions answered, the patient verbalized understand Coding Level of Care Code Est Pt Level 3 (44225) Diagnoses Amenorrhea N91.2
[2023-04-29 13:15] VITALS: BP 110/70; BMI 25.8
== END 2023-04-29 13:29 | disposition home or self-care (01) ==
LOC: HO.HWS 12:54
PROVIDERS: PCP Pediatrics; Visit Provider Obstetrics & Gynecology
DX: N91.2 Amenorrhea, unspecified (principal)
CPT/HCPCS: 99213

== ENCOUNTER 2023-05-14 14:50 | Outpatient (AMB) | payer OTHER, SELFPAY ==
[2023-05-14 15:04] VITALS: BP 108/72; BMI 25.7
--- NOTE | 2023-05-14 15:04 | MHC.OFFVIS ---
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 TSH, hCG, prolactin, testosterone total and free and 17 hydroxyprogesterone or within normal PFSH Family History Father Diabetes Social History Household Members: Family Housing: House Alcohol intake: current Alcohol intake frequency: holidays/special occasions only Patient Tobacco Use Status: Current someday Tobacco user e-Cigarette/Vaping Use: Currently Using Sexual orientation: Straight/Heterosexual Gender identity: Female Female Reproductive History Menstrual Date of last menstrual period: 05/11/23 control method: none Date of last pap smear: 03/26/23 (negative) Physical Exam Vital Signs: Last Vital Signs BP 108/72 05/14/23 15:04 BMI result Body Mass Index 25.7 Assessment & Plan Assessment & Plan (1) Anovulatory amenorrhea: Comment: ? PCOS versus familiar hirsutism Code(s): N91.2 - Amenorrhea, unspecified Plan: Discussed with the patient the results of workup, diagnostic criteria for PCOS . The patient has family history of his to tease them and is of Mediterranean descent, therefore PCOS diagnosis questionable. Options of treatment discussed with the patient include but not limited to control pills, cyclic Prometrium or Mirena IUD, all pros and cons and risks and benefits of each were discussed with the patient, the patient would like to think about in it back to us. Meanwhile Instructions given the patient to use a backup method for control and to schedule a follow-up appointment within few weeks. All questions answered, the patient verbalized understanding Coding Level of Care Code Est Pt Level 3 (64013) Diagnoses Anovulatory amenorrhea N91.2
== END 2023-05-14 15:27 | disposition home or self-care (01) ==
LOC: HO.HWS 14:50
PROVIDERS: PCP Pediatrics; Visit Provider Obstetrics & Gynecology
DX: N91.2 Amenorrhea, unspecified (principal)
CPT/HCPCS: 99213

== ENCOUNTER → 2023-05-14 14:50 | Outpatient (BNVA) | payer OTHER, SELFPAY | PROVIDERS: PCP Pediatrics; Visit Provider Obstetrics & Gynecology ==

== ENCOUNTER 2024-02-07 10:49 | Outpatient (AMB) | payer OTHER, SELFPAY ==
[2024-02-07 10:57] VITALS: BP 120/64; PULSE 92; BMI 26.8
--- NOTE | 2024-02-07 10:57 | A.OFFVIS_ITS ---
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 She is a pleasant young woman with questionable prior history of cardiac defect. She said at age of 89 years old she was taken to couple of debit agent and she had an echocardiogram which she describes in [place] where she was told that she had a hole in her heart and she was prescribed to medicines. She does not recall the details. She said then she saw a 3rd senior reservations agent who said that she did not require this medication she does not have any congenital heart issues she was at that point in time. She is not sure. She says this started after somebody notice a murmur in his childhood for her. Since then she has been doing well. She has moved here. She says for longest time she has had palpitation which happens about once a month usually when she is resting when she suddenly feels her heart skipping or racing a little bit. Symptoms last for less than a minute and then subside. She has never had any diagnose is for it. There is no life-limiting symptoms. However she is also concerned about shortness of breath mostly when she is laying down at nighttime. There is no clear history of PND, leg edema, abdominal distension. No exertional shortness of breath and says she does not get short of breath when she is exercising. PFSH Family History Father Diabetes Social History Household Members: Family Housing: House Alcohol intake: current Alcohol intake frequency: holidays/special occasions only Patient Tobacco Use Status: Current someday Tobacco user e-Cigarette/Vaping Use: Currently Using Sexual orientation: Straight/Heterosexual Gender identity: Female Review of Systems Const Denies chills, Denies fatigue, Denies fever(s), Denies frequent falls, Denies weakness, Denies weight gain and Denies weight loss ENT Denies dizziness Card Denies chest pain, Denies leg edema, Denies lightheadedness, Reports palpitations, Reports dyspnea, Reports dyspnea on exertion and Reports orthopnea Resp Denies cough, Reports dyspnea and Reports dyspnea on exertion GI Denies bloating and Denies change in bowel habits Musc Denies muscle weakness, Denies numbness and Denies tingling Neuro Denies dizziness, Denies frequent falls, Denies numbness, Denies tingling and Denies weakness Endo Denies fatigue and Reports palpitations Physical Exam Vital Signs: Last Vital Signs Pulse 92 02/07/24 10:57 BP 120/64 02/07/24 10:57 BMI result Body Mass Index 26.8 Const General: cooperative, comfortable, no acute distress, well developed, alert, awake, Physically active and well groomed Nutritional Appearance: average body habitus Orientation/consciousness: patient oriented x3 Limitations: no limitations HEENT Head: Yes normocephalic and Yes atraumatic Neck Neck: Yes trachea midline, Yes supple and Yes no JVD Resp Effort & Inspection: normal respiratory effort Auscultation: clear to auscultation bilaterally Cardio Jugular venous distension: no JVD Palpation: normal PMI Rate: regular rate Rhythm: regular rhythm Heart sounds: S1 normal heart sound present, S2 normal heart sound present, no click, no gallops, no murmurs and no rubs GI Auscultation: normal bowel sounds Skin General skin exam: no rashes or lesions noted Neuro General: patient oriented x3 and no focal motor deficits Extrem General: Yes no clubbing, cyanosis or edema Psych Appearance: grossly normal Office Procedures EKG Details: EKG shows normal sinus rhythm with normal EKG with normal axis and normal intervals [id number], Complete Assessment & Plan Assessment & Plan (1) Palpitations: Code(s): R00.2 - Palpitations Plan: Symptoms of palpitation which are more suggestive of extra systoles such as PACs or PVCs. Short run of SVT is likely. However given infrequent occurrence of these symptoms and minimal lifestyle limitations, no pharmacotherapy is recommended. Will establish diagnostic pathway to assess for these symptoms. Will suggest a 30 day event monitor to further assess for the same. Avoidance of stimulants was discussed. Stress mitigation strategies were discussed. Further treatment based on the findings of the arrhythmia. (2) SOB (shortness of breath): Code(s): R06.02 - Shortness of breath Plan: Shortness of breath without any clear exertional pattern to it. No signs or symptoms of heart failure. Possible underlying congenital heart disease question ASD. No physical findings suggestive of any significant murmurs at this point time. Will suggest an echocardiogram to evaluate for structure of the heart including presence of any intracardiac defects with a saline bubble contrast study. Further treatment based on the findings. Will follow up in the clinic in 2 months. Thank you for allowing me to partake in his care Orders: Orders 2 CA echo transthoracic complete Today R06.02 - Shortness of breath ECG 30 day event monitor Today R00.2 - Palpitations Coding Level of Care Code New Pt Level 4 (86549) Diagnoses Palpitations R00.2 SOB (shortness of breath) R06.02 CPT Codes EKG - CPT: [id number], Complete ([id number])
== END 2024-02-07 11:21 | disposition home or self-care (01) ==
PROVIDERS: PCP Pediatrics; Visit Provider Internal Medicine Cardiovascular Disease
DX: R00.2 Palpitations (principal); R06.02 Shortness of breath
CPT/HCPCS: 93010; 99204

== ENCOUNTER → 2024-02-07 10:49 | Outpatient (BNVA) | payer OTHER, SELFPAY | PROVIDERS: PCP Pediatrics; Visit Provider Internal Medicine Cardiovascular Disease | DX: R00.2 Palpitations (principal); R06.02 Shortness of breath | CPT/HCPCS: 93005 ==

== ENCOUNTER → 2024-02-14 13:39 | Outpatient (REF) | payer OTHER, SELFPAY ==
--- NOTE | 2024-02-14 13:45 | HM_ITS ---
Cardiac event monitor Indication: Palpitations Technique: Patient was hooked up to cardiac event monitor from 02/14/2024 to 03/15/2024 for total period of 30 days. Total where time was 19 days. Findings: Baseline was normal sinus rhythm with average heart of 82 beats per minute. Frequent sinus tachycardia noted with 25% of time heart rate about 100 beats per minute. There were no significant pauses noted. There were no arrhythmias noted. Patient triggered the event monitor 18 times with most frequently no symptoms were specified correlating with sinus rhythm. Patient had 3 episodes of symptoms palpitations correlating with sinus tachycardia. Conclusion: 1. Baseline was normal sinus rhythm with no significant pauses 2. Frequent sinus tachycardia noted 3. No significant arrhythmias noted 4. Most of the patient reported symptoms correlated with normal sinus rhythm MTDD
== END ==
LOC: HO.CARD 13:39
PROVIDERS: Visit Provider Internal Medicine Cardiovascular Disease
DX: R00.2 Palpitations (principal)
CPT/HCPCS: 93270

== ENCOUNTER → 2024-02-14 13:45 | Outpatient (BNV) | payer SELFPAY | PROVIDERS: Visit Provider Internal Medicine Cardiovascular Disease | DX: R00.0 Tachycardia, unspecified (principal) | CPT/HCPCS: 93272 ==

== ENCOUNTER → 2024-03-13 08:07 | Outpatient (REF) | payer OTHER, SELFPAY ==
--- NOTE | 2024-03-13 08:10 | CA_ITS ---
Transthoracic Echocardiogram Patient (Last, First, Middle): Hanna Yo, Gender: Female Date of : 2000 Age: 23 Procedure Date: 03/13/2024 Procedure Type: Transthoracic Echocardiogram Location: OP Height: 129.54 cm Weight: 68.04 kg BSA: 1.47 m2 Heart Rate: bpm BP: 116 / 70 mmHg Referring MD: Alonzo Saleh MD Symptoms: R06.02 - Shortness of breath Study Quality: Good ECG Rhythm: Sinus Conclusions: - The left ventricular systolic function is normal. The visually estimated ejection fraction is between 55-60%. - There is no evidence of interatrial shunt by agitated saline. - No obvious valvular pathology seen on this study. Findings Left Ventricle Normal left ventricular cavity size. There is normal left ventricular wall thickness. The left ventricular systolic function is normal. The visually estimated ejection fraction is between 55-60%. There is no evidence of regional wall motion abnormalities. Diastolic function is normal for age. Right Ventricle Normal right ventricular cavity size and systolic function. Atria Both atria are normal in size. There is no evidence of interatrial shunt by agitated saline. Aortic Valve There is a normal trileaflet aortic valve. There is no aortic valve stenosis. There is no aortic valve regurgitation. Mitral Valve The mitral valve appears normal. There is trace mitral valve regurgitation. There is no mitral valve stenosis. Pulmonic Valve The pulmonic valve is likely normal. Tricuspid Valve Normal tricuspid valve structure. There is trace tricuspid valve regurgitation. There is no evidence of pulmonary hypertension. Great Vessels The asc aorta and aortic arch are normal in size. Venous The inferior vena cava is normal in size and collapses greater than 50% with inspiration. Pericardium/Pleural There is no evidence of pericardial effusion. Prior Study Comparison No prior study available for comparison. Recommendations, Care & Conclusions No obvious valvular pathology seen on this study. Measurements 2D Linear Measurements IVSd: 0.74 0.6-0.9/0.6-1.0 cm LVIDd: 4.94 3.9-5.3/4.2-5.9 cm LVIDd Index: 3.36 2.4-3.2/2.2-3.1 cm/m2 LVIDs: 3.21 2.0-3.6 cm LVPWd: 0.71 0.7-1.1 cm Ao Root: 2.70 2.1-3.5 cm LA Diam: 3.80 2.7-3.8/3.0-4.0 cm LAIDs Index: 2.59 1.5-2.3 cm/m2 LV Mass: 145.98 67-162/88-224 g LV Mass Index: 99.30 43-95/49-115 g/m2 LVOT Diam: 2.20 3.0+(-)1.3 cm RVOT Diam: 3.00 1.7-2.3 cm 2D Systolic Function EF 4C: 60.90 >55% EF 2C: 51.70 >55% EF BiP: 54.70 >55% Mitral Valve MV Pk E: 0.75 MV PK A: 0.39 MV Decel Time: 176.00 E/A: 1.90 E'Lateral: 23.70 E'Medial: 13.30 E/E' Med: 5.70 E/E' Lat: 3.20 PHT: 52.00 MVA PHT: 4.23 Decel [place]: 4.29 Aortic Valve AoV Pk John: 1.03 AoV Mn John: 0.69 AoV VTI: 0.24 AoV Pk Grad: 4.00 Aov Mn Grad: 2.00 ALEJA Cont.VTI: 2.39 LVOT LVOT Pk John: 0.75 LVOT Mn John: 0.49 LVOT VTI: 0.15 LVOT Pk Grad: 2.00 LVOT Mn Grad: 1.00 LVOT Diam: 2.20 LVOT Area: 3.80 Diastolic Function MV Pk E: 0.75 MV Pk A: 0.39 E/A: 1.90 E'Medial: 13.30 E/E' Med: 5.70 E' Laterial: 23.70 E/E' Lat: 3.20 Right Ventricle TAPSE (mm): 26.00 TVS' John: 11.00 Tricuspid Valve TR Pk John: 1.72 TR Pk Grad: 12.00 RVOT: 3.00 RVSP: 15.00 Great Vessels Aorta Ao Root-2D: 2.70 2.0-3.7 cm Ao Asc: 2.50 2.1-3.4 cm Ao Arch: 2.30 Pulmonary Valve PV Pk John: 0.99 Peak PV Grad: 4.00 Updated in Other Vendor System with Status of Final Gilberto Blanco MD electronically signed on 03/15/2024 10:40:19 AM with status of Final
== END ==
LOC: HO.CARD 08:07
PROVIDERS: PCP Registered Nurse Medical-Surgical; Visit Provider Internal Medicine Cardiovascular Disease
DX: R06.02 Shortness of breath (principal)
CPT/HCPCS: 93306

== ENCOUNTER → 2024-03-13 08:10 | Outpatient (BNV) | payer OTHER, SELFPAY | PROVIDERS: PCP Registered Nurse Medical-Surgical; Visit Provider Internal Medicine | DX: R06.02 Shortness of breath (principal) | CPT/HCPCS: 93306 ==

== ENCOUNTER 2024-03-20 13:46 | Outpatient (AMB) | payer MEDICAID, SELFPAY ==
[2024-03-20 13:51] VITALS: BP 118/60; PULSE 90; BMI 26.9
--- NOTE | 2024-03-20 13:51 | MHC.OFFVIS ---
Vital Signs 03/20/24 13:51 Height 5 ft 3 in Weight 152 lb 1.903 oz BMI 26.9 BP 118/60 Blood Pressure Location Lt brachial Position Sitting Pulse 90 Pulse Source Pulse Oximeter Intake Visit Reasons: 2m follow up Allergies animal dander Allergy (Severe, Verified 03/20/24 13:54) Sneezing lactose Allergy (Severe, Verified 03/20/24 13:54) Stomach Upset lactase Allergy (Verified 03/20/24 13:54) Sneezing Medication List - Last Reconciled 03/20/24 by Mima De Paz NP-C hydroxyzine HCl 25 mg PO QID PRN HPI HPI 2m follow up: Details: Teresa is a 23-year-old female past medical history of possible congenital heart abnormality noted as a child in [place]. She was initially on medications and followed with Cardiology. A 3rd rn licensed practical had evaluated her and told her she does not have any congenital heart issues. She presents here with report of heart palpitations and recently underwent an echocardiogram and cardiac event monitor and now presents for follow-up. Today she reports that she she still notices heart palpitations. She describes it as rapid heartbeat mostly in the evenings at night. She admits to having anxiety and was recently started on medicine by her PCP. 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 She is not notice heart palpitations when she is active during the day. She has no lightheadedness, presyncope, syncope, falls. No shortness of breath, PND, orthopnea. No chest discomfort at rest or with activity. She does not exercise routinely. PFSH Family History Father Diabetes Social History Household Members: Family Housing: House Alcohol intake: current Alcohol intake frequency: holidays/special occasions only Patient Tobacco Use Status: Current someday Tobacco user e-Cigarette/Vaping Use: Currently Using Sexual orientation: Straight/Heterosexual Gender identity: Female Review of Systems Const Details: anxiety All systems reviewed & are unremarkable except as noted in HPI and below Denies weakness ENT Denies dizziness Card Denies chest pain, Denies chest pain with activity, Denies syncope, Reports rapid heart rate, Denies pedal edema, Denies edema, Denies leg edema, Denies lightheadedness, Denies palpitations, Denies dyspnea, Denies dyspnea on exertion and Denies orthopnea Resp Denies cough, Denies dyspnea and Denies dyspnea on exertion GI Denies hematochezia and Denies change in stool character Musc Denies abnormal gait, Denies muscle cramps, Denies muscle weakness, Denies numbness, Denies radiating pain into limb and Denies tingling Neuro Denies abnormal gait, Denies dizziness, Denies syncope, Denies numbness, Denies tingling and Denies weakness Endo Denies palpitations Physical Exam Vital Signs: Last Vital Signs Pulse 90 03/20/24 13:51 BP 118/60 03/20/24 13:51 BMI result Body Mass Index 26.9 Const General: cooperative, healthy appearing, comfortable and no acute distress Orientation/consciousness: patient oriented x3 Neck Neck: Yes normal visual inspection Resp Effort & Inspection: normal respiratory effort Auscultation: clear to auscultation bilaterally, no rales, no rhonchi and no wheezes Cardio Rate: regular rate Rhythm: regular rhythm Heart sounds: S1 normal heart sound present, S2 normal heart sound present, no murmurs and no rubs Neuro General: patient oriented x3 Extrem General: Yes normal to inspection Psych Appearance: grossly normal Mental Status: mental status grossly normal Speech and movement: Normal speech and movement present Assessment & Plan Assessment & Plan (1) Palpitations: Code(s): R00.2 - Palpitations Category: Medical Plan: Reports of heart palpitations where she feels her heart is beating fast. Mostly occurring in the evening and night, less during the day when she is busy. Cardiac event monitor done 02/14/2024, worn for 19 days shows sinus rhythm with average heart rate 82, frequent sinus tach, 25% greater than 100, no arrhythmias noted. She had 3 episodes of palpitations that correlated with sinus tach. Echocardiogram done 03/13/2024 showed EF 55-60%, no shunt noted with agitated saline, normal valves, no regional wall motion abnormality. Test results reviewed with her. She admits to drinking 1-2 caffeinated beverages in the day, (sometimes 1 in the afternoon). She admits to high stress and anxiety, as a college student. Discussed options for conservative management for her sinus tachycardia. If anxiety persists discuss further with her PCP. Reduce caffeinated beverages down to 1 daily, not in the afternoon. Maintain good hydration, exercise as tolerated, get adequate rest. Stress reduction activities discussed. Cardiology follow-up as needed. She is agreeable to this plan. (2) Anxiety: Code(s): F41.9 - Anxiety disorder, unspecified Category: Medical Plan: As above Plan Time spent on chart review, documentation, interview and assessment Coding Level of Care Code Est Pt Level 3 (46031) Diagnoses Palpitations R00.2 Anxiety F41.9 Time Spent (min) 24
== END 2024-03-20 14:22 | disposition home or self-care (01) ==
PROVIDERS: PCP Pediatrics; Visit Provider Nurse Practitioner Family
DX: R00.2 Palpitations (principal); F41.9 Anxiety disorder, unspecified
CPT/HCPCS: 99213

== ENCOUNTER → 2024-03-20 13:46 | Outpatient (BNVA) | payer OTHER, SELFPAY | PROVIDERS: PCP Pediatrics; Visit Provider Nurse Practitioner Family ==

== ENCOUNTER 2025-01-07 12:27 | Outpatient (AMB) | payer OTHER, SELFPAY ==
[2025-01-07 12:43] VITALS: BP 104/70; PULSE 88; TEMP 36.8; O2SAT 98; BMI 28.0
--- NOTE | 2025-01-07 12:43 | MHC.OFFWIV ---
Intake Vital Signs 01/07/25 12:43 Height 5 ft 3 in Weight 158 lb BMI 28.0 BP 104/70 Blood Pressure Location Lt brachial Position Sitting Pulse 88 Pulse Source Pulse Oximeter Temp 98.3 F Temp Source Oral Pulse Oximetry (%) 98 Oxygen Delivery Method Room Air Intake Visit Reasons: EP-TB spot Intake Note: presents with need for TB testing for schooling Patient Tobacco Use Status: Current someday Tobacco user Allergies animal dander Allergy (Severe, Verified 01/07/25 12:46) Sneezing lactose Allergy (Severe, Verified 01/07/25 12:46) Stomach Upset lactase Allergy (Verified 01/07/25 12:46) Sneezing Do you need a note to return to daycare/school/sports/work: No HPI HPI Comments History of Present Illness Details History of Present Illness - The patient is a 24-year-old female presenting for a 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 - She does not have any paperwork for the test and is seeking only the screening. - She has the patient portal and will be able to get the results. - She needs it by January 15. Physical Exam General: Cooperative, healthy appearing, comfortable, no acute distress and well developed Respiratory: Normal respiratory effort and able to speak in complete sentences. Clear to auscultation bilaterally Cardiovascular: Regular rate and rhythm. Normal S1 and S2 Patient was informed and verbally consented to the use of an ambient scribe for clinic note documentation during this visit. [facility] Family History Father Diabetes Social History Household Members: Family Housing: House Alcohol intake: current Alcohol intake frequency: holidays/special occasions only Patient Tobacco Use Status: Current someday Tobacco user e-Cigarette/Vaping Use: Currently Using Sexual orientation: Straight/Heterosexual Gender identity: Female Review of Systems Const All systems reviewed & are unremarkable except as noted in HPI and below Physical Exam Vital Signs: Last Vital Signs Temp 98.3 F 01/07/25 12:43 Pulse 88 01/07/25 12:43 BP 104/70 01/07/25 12:43 Pulse Ox 98 01/07/25 12:43 Oxygen Delivery Method Room Air 01/07/25 12:43 BMI result Body Mass Index 28.0 Assessment & Plan Assessment & Plan (1) Screening-pulmonary TB: Code(s): Z11.1 - Encounter for screening for respiratory tuberculosis Plan Plan - Order a tuberculosis screening test for the patient as required for her dental hygienist program. Orders: Orders T Spot TB Today Z00.00 - Encounter for general adult medical examination without abnormal findings Coding Level of Care Code Est Pt Level 2 (59572) Diagnoses Screening-pulmonary TB Z11.1
== END 2025-01-07 14:12 | disposition home or self-care (01) ==
PROVIDERS: PCP Pediatrics; Visit Provider Physician Assistant Medical
DX: Z11.1 Encounter for screening for respiratory tuberculosis (principal)

== ENCOUNTER 2025-01-07 12:27 | Outpatient (REF) | payer OTHER, SELFPAY ==
[2025-01-09 22:09] LABS: TS Negative Control Passed; TS Panel A 0; TS Panel B 0; TS Positive Control Passed; TSpotTB Negative (Negative)
== END 2025-01-07 12:28 | disposition home or self-care (01) ==
LOC: HO.LAB 12:27
PROVIDERS: Absent Provider Physician Assistant Medical
DX: Z00.00 Encounter for general adult medical examination without abnormal findings (principal); Z11.1 Encounter for screening for respiratory tuberculosis; F17.210 Nicotine dependence, cigarettes, uncomplicated
CPT/HCPCS: 36415; 86481; 99212

== ENCOUNTER 2025-02-04 14:22 | Outpatient (AMB) | payer OTHER, SELFPAY ==
--- NOTE | 2025-02-04 14:20 | MHC.PC.OV ---
Vital Signs 02/04/25 14:26 Height 5 ft 3.7 in Weight 161 lb BMI 27.9 BP 101/59 L Blood Pressure Location Lt brachial Position Sitting Respiration 16 Pulse 82 Pulse Source Pulse Oximeter Temp 97.7 F Temp Source Temporal Artery Scan Pulse Oximetry (%) 100 Oxygen Delivery Method Room Air Intake Visit Reasons: New Patient [employer] Solutions Operator Required: No Accompanied by: Self / Same As Patient Allergies animal dander Allergy (Severe, Verified 02/04/25 14:48) Sneezing lactose Allergy (Severe, Verified 02/04/25 14:48) Stomach Upset lactase Allergy (Verified 02/04/25 14:48) Sneezing Medication List - Last Reconciled 02/04/25 by Mariaelena Cassidy PA-C hydrocortisone 2.5% ea topical PRN Tobacco use date assessed: 02/04/25 Dental Screening Dental Screen Date: 02/04/25 Did you have a dental visit in the last 12 months?: Yes Did you have a dental problem in the last 6 months where you did not have access to dental care?: No Was dental information given to patient?: Patient has dentist HPI New Patient PE HPI Details The patient is a 24-year-old female presenting with gastrointestinal symptoms and preventative care concerns. The patient reports experiencing episodes of bloody stools, which occur approximately once a year. This issue began after consuming a large amount of [employer], leading to straining and subsequent bleeding. She was advised by a registered nurse to consult a maintenance shop technician, who provided wipes and cream for hemorrhoids. No colonoscopy was performed, and the symptoms have been managed with topical treatments as needed. The patient also suspects lactose intolerance, as she experiences gastrointestinal discomfort after consuming dairy products. She has been using lactase supplements, which have alleviated the symptoms. This intolerance is not consistently associated with the episodes of bloody stools. Regarding her concern for Polycystic Ovary Syndrome (PCOS), the patient has experienced symptoms such as hirsutism and hair loss. Previous blood tests by a search marketing coordinator did not confirm PCOS, but she remains concerned due to her symptoms and family history. A pelvic ultrasound has been recommended to further investigate this possibility. The patient has no significant past medical history, no history of asthma or anxiety, and no prior surgeries. She has a family history of type 2 diabetes, as her father has been managing the condition for over 20 years. 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 and is studying dental hygiene - Family history: Father has type 2 diabetes [facility] Medical History (Updated 02/04/25 @ 15:07 by Mariaelena Cassidy PA-C) Preventative health care Lactose intolerance Hemorrhoids Family History Father Diabetes Mother History of blood pressure problems Social History Housing: House Alcohol intake: current Alcohol intake frequency: holidays/special occasions only Patient Tobacco Use Status: Never used Tobacco e-Cigarette/Vaping Use: Currently Using service: Yes Current occupational status: student Sexual orientation: Straight/Heterosexual Gender identity: Female Cognitive needs: No Hearing needs: No Vision needs: Yes (rx contacts) Questionnaire PHQ-9 Over the last 2 weeks, how often have you been bothered by any of the following problems? 1. Little interest or pleasure in doing things: not at all 2. Feeling down, depressed, or hopeless: not at all 3. Trouble falling or staying asleep, or sleeping too much: not at all 4. Feeling tired or having little energy: not at all 5. Poor appetite or overeating: not at all 6. Feeling bad about yourself - or that you are a failure or have let yourself or your family down: not at all 7. Trouble concentrating on things, such as reading the newspaper or watching television: not at all 8. Moving or speaking so slowly that other people could have noticed. Or the opposite - being so fidgety or restless that you have been moving around a lot more than usual: not at all 9. Thoughts that you would be better off or of hurting yourself in some way: not at all Total score: 0 Depression Screening Interpretation: Negative Depression Screening Done: Yes 96893 - PHQ-9 Billing: Yes Source: Developed by Drs. Jacques Shankar, Tammy Fritz, Chencho Melendrez and colleagues, with an educational juan diego from [employer]. Thrive Questionnaire Date Thrive assessed: 02/04/25 I am a: Patient What is your living situation today?: I have a steady place to live Within the past 12 months, did the food you bought not last and you didn't have the money to get more?: Never true Within the past 12 months, did you worry whether your food would run out before you got money to buy more?: Never true Do you have trouble paying for medicines?: No Do you have trouble getting transportation to medical appointments?: No Do you have trouble paying your heating and electricity bill?: No Do you have trouble taking care of your child, family member or friend?: No Do you have trouble with day-to-day activities such as bathing, preparing meals, shopping, managing finances, etc.?: No Are you currently unemployed and looking for a job?: No Are you interested in more education?: No Please select the resources that you would like help with: None Currently or been in a relationship where the following occur: No concerns reported THRIVE Score: 0 AUDIT C Alcohol Use Questionnaire (AUDIT-C) 1. How often do you have a drink containing alcohol?: Monthly or less 2. How many drinks containing alcohol do you have on a typical day when you are drinking?: 1 or 2 3. How often do you have six or more drinks on one occasion?: Never Total Score: 1 Score Reviewed/Action Taken: No JAUN-7 AMB Questionnaire JAUN-7 Date JAUN - 7 assessed: 02/04/25 Feeling nervous, anxious, or on edge: 1 = Several days Not being able to stop or control worryin = Nearly every day Worrying too much about different things: 3 = Nearly every day Trouble relaxin = Nearly every day Being so restless that it is hard to sit still: 0 = Not at all Becoming easily annoyed or irritable: 2 = More than half the days Feeling afraid as if something awful might happen: 0 = Not at all Total JAUN-7 score (0-4 normal; 5-9 mild; 10-14 moderate; 15-21 severe): 12 Source: Developed by Drs. Jacques Shankar, Tammy Fritz, Chencho Melendrez and colleagues, with an educational juan diego from [employer] JAUN-7 Assessment Billing JAUN-7 Assessment Tool: JAUN-7 Assessment 87413 Review of Systems Const Details: - Gastrointestinal: Reports intermittent bloody stools, possible lactose intolerance. Denies abdominal pain. - Endocrine: Reports hirsutism and hair loss. Denies suprapubic abdominal pain. - Respiratory: Denies dyspnea, asthma, or anxiety. All systems reviewed & are unremarkable except as noted in HPI and below Physical exam (Primary Care) Vital Signs: Last Vital Signs Temp 97.7 F 02/04/25 14:26 Pulse 82 02/04/25 14:26 Resp 16 02/04/25 14:26 BP 101/59 L 02/04/25 14:26 Pulse Ox 100 02/04/25 14:26 Oxygen Delivery Method Room Air 02/04/25 14:26 Care Plan Goal for BP management: <140/90 at Goal BMI result Body Mass Index 27.9 BMI Assessment/Plan discussion: High BMI High, discussed plan: lifestyle, weight reduction, dietary, physical activity, alcohol moderation and other Tobacco/Smoking Status: Tobacco use Status Tobacco use date assessed 02/04/25 02/04/25 14:25 Patient Tobacco Use Status Never used Tobacco 02/04/25 14:25 Tobacco use type 01/07/25 12:24 e-Cigarette/Vaping Use Currently Using 02/04/25 14:25 PHQ-9: PHQ-9 Score PHQ-9: Total score 0 02/04/25 14:25 Depression Screening Interpretation: Negative Thrive Assessment: Date of Thrive Assessment Date Thrive assessed 02/04/25 02/04/25 14:25 Currently or been in a relationship where the following occur: No concerns reported Const Other: Appearance: Alert. Oriented X3. No acute distress. Head: Normal external exam. Normocephalic. Atraumatic. Eyes: Pupils are equal, round, and reactive to light. Extraocular movements intact. Conjunctiva and sclera normal. Eyelids normal. Ears: External auditory canal normal. Tympanic membranes normal. Throat: Pharynx normal. Uvula midline. Moist mucous membranes. Neck: Normal inspection. Neck supple. Full range of motion. No adenopathy. Thyroid Normal. No meningeal signs. No neck mass noted. Cardiovascular: Normal heart rate and rhythm. Heart sound normal. No murmurs noted. Pulses normal throughout. Respiratory: No respiratory distress. Painless inspiration. Breath sounds normal. No wheezes/rales/rhonchi noted. Chest nontender. No accessory muscle usage noted or decreased air movement noted. Abdomen: Soft and nontender. Bowel sounds normal in all 4 quadrants. No distention noted. No organomegaly noted. No visible injury noted. Back: No costovertebral angle tenderness. Full range of motion noted. Skin: Skin warm and dry. Normal skin color. Normal skin turgor. No rashes/lesions/lacerations noted. Extremities: No lower extremity edema. Extremities exhibit normal range of motion. Extremities nontender. Neuro: Oriented X 3. No motor deficit. No sensory deficit. Reflexes normal. Coding Level of Care Code New Pt Level 4 (02494) Complex EM visit Add On G2211 Diagnoses Hemorrhoids K64.9 Lactose intolerance E73.9 Amenorrhea N91.2 Anovulatory amenorrhea N91.2 Preventative health care Z00.00 Additional Codes PHQ-9 - 78926 - PHQ-9 Billing: Yes ([id number]) JAUN-7 Assessment Billing - JAUN-7 Assessment Tool: JAUN-7 Assessment 30349 ([id number]) Assessment & Plan Assessment & Plan (1) Hemorrhoids: Code(s): K64.9 - Unspecified hemorrhoids Category: Medical Plan: The patient has been experiencing intermittent episodes of bloody stools, likely due to hemorrhoids. She has been using wipes and cream as needed for symptom management. A colonoscopy was not performed previously, but it may be considered if symptoms persist or worsen. (2) Lactose intolerance: Code(s): E73.9 - Lactose intolerance, unspecified Category: Medical Plan: The patient suspects lactose intolerance, as she experiences gastrointestinal discomfort after consuming dairy products. She has been using lactase supplements, which have alleviated the symptoms. Continued use of lactase supplements is recommended. (3) Amenorrhea: Comment: With hirsutism Code(s): N91.2 - Amenorrhea, unspecified Category: Medical Plan: The patient has symptoms suggestive of PCOS, including hirsutism and hair loss. Previous blood tests did not confirm PCOS, but a pelvic ultrasound has been recommended to further investigate this possibility. (4) Anovulatory amenorrhea: Comment: ? PCOS versus familiar hirsutism Code(s): N91.2 - Amenorrhea, unspecified Category: Medical Plan: The patient has symptoms suggestive of PCOS, including hirsutism and hair loss. Previous blood tests did not confirm PCOS, but a pelvic ultrasound has been recommended to further investigate this possibility. (5) Preventative health care: Code(s): Z00.00 - Encounter for general adult medical examination without abnormal findings Category: Medical Plan: The patient will undergo blood work to check cholesterol, hemoglobin A1c, thyroid function, and other parameters as part of routine preventative care. She will also have a pelvic ultrasound to assess for PCOS. Plan Plan Patient was informed and verbally consented to the use of an ambient scribe for clinic note documentation during this visit. 1. Hemorrhoids The patient has been experiencing intermittent episodes of bloody stools, likely due to hemorrhoids. She has been using wipes and cream as needed for symptom management. A colonoscopy was not performed previously, but it may be considered if symptoms persist or worsen. 2. Possible Lactose Intolerance The patient suspects lactose intolerance, as she experiences gastrointestinal discomfort after consuming dairy products. She has been using lactase supplements, which have alleviated the symptoms. Continued use of lactase supplements is recommended. 3. Polycystic Ovary Syndrome (Pcos) The patient has symptoms suggestive of PCOS, including hirsutism and hair loss. Previous blood tests did not confirm PCOS, but a pelvic ultrasound has been recommended to further investigate this possibility. 4. Preventative Care The patient will undergo blood work to check cholesterol, hemoglobin A1c, thyroid function, and other parameters as part of routine preventative care. She will also have a pelvic ultrasound to assess for PCOS. During the visit, we discussed the patient's gastrointestinal symptoms, including the possibility of hemorrhoids and lactose intolerance. I recommended continuing the use of wipes and cream for hemorrhoids and lactase supplements for lactose intolerance. We also discussed the potential for PCOS, and I advised a pelvic ultrasound to further investigate. Preventative care measures, including blood work and routine screenings, were outlined. The patient was informed about the importance of follow-up visits and monitoring her symptoms. Orders: Orders Hemoglobin A1c Today Z00.00 - Encounter for general adult medical examination without abnormal findings Liver Panel Today Z00.00 - Encounter for general adult medical examination without abnormal findings Magnesium Today Z00.00 - Encounter for general adult medical examination without abnormal findings US pelvic complete Today N91.2 - Amenorrhea, unspecified Complete Blood Count Auto Diff Today Z00.00 - Encounter for general adult medical examination without abnormal findings Comprehensive [place]. Panel Fast Today Z00.00 - Encounter for general adult medical examination without abnormal findings Lipid Panel Today Z00.00 - Encounter for general adult medical examination without abnormal findings TSH reflex Free T4 Today Z00.00 - Encounter for general adult medical examination without abnormal findings C Reactive Protein Today Z00.00 - Encounter for general adult medical examination without abnormal findings Vitamin B12 and Folate Today Z00.00 - Encounter for general adult medical examination without abnormal findings Vitamin D 25-OH Total Today Z00.00 - Encounter for general adult medical examination without abnormal findings Patient Instructions: - Continue using wipes and cream for hemorrhoid management as needed. - Use lactase supplements when consuming dairy products to alleviate symptoms of lactose intolerance. - Schedule and attend a pelvic ultrasound to assess for PCOS. - Complete the recommended blood work, ensuring to fast as instructed. - Follow up with the clinic for results and further management based on findings.
[2025-02-04 14:26] VITALS: BP 101/59; PULSE 82; RESP 16; TEMP 36.5; O2SAT 100; BMI 27.9
== END 2025-02-04 15:03 | disposition home or self-care (01) ==
LOC: HO.HMCSH 14:22
PROVIDERS: Visit Provider Physician Assistant Medical
DX: K64.9 Unspecified hemorrhoids (principal); E73.9 Lactose intolerance, unspecified; N91.2 Amenorrhea, unspecified; Z00.00 Encounter for general adult medical examination without abnormal findings

== ENCOUNTER → 2025-02-04 14:22 | Outpatient (BNVA) | payer OTHER, SELFPAY | PROVIDERS: Visit Provider Physician Assistant Medical | DX: K64.9 Unspecified hemorrhoids (principal); N91.2 Amenorrhea, unspecified | CPT/HCPCS: 96127; 99202 ==

== ENCOUNTER 2025-02-05 12:10 | Outpatient (REF) | payer OTHER, SELFPAY ==
[2025-02-05 14:43] LABS: MANUAL DIFF FLAG NO
[2025-02-05 14:46] LABS: Hematocrit 41.7 % (37.0-47.0); Hemoglobin 14.1 g/dl (12.0-16.0); Imm Gran Abs Auto 0.02 X10*3/uL (0.00-0.03); Imm Gran Pct Auto 0.4 % (0.0-0.4); Lymphocytes Absolute Auto 1.4 X10*3/uL (1.2-4.9); Mean Corpuscular HGB Conc 33.8 g/dl (31.0-35.0); Mean Corpuscular Hemoglobin 30.5 pg (27.0-33.0); Mean Corpuscular Volume 90.3 fL (80.0-98.0); NRBC Abs Auto 0.000 X10*3/uL (0.0-0.012); NRBC Pct Auto 0.0 /100WBC (0.0-0.2); Platelet Count 228 X10*3/uL (160-400); Red Blood Count 4.62 X10*6/uL (4.20-5.50); White Blood Count 5.0 X10*3/uL (4.8-10.8)
[2025-02-05 15:03] LABS: Alanine Aminotransferase 20 U/L (0-31); Albumin Level 4.6 g/dL (3.5-5.0); Alkaline Phosphatase 65 U/L (39-117); Anion Gap 13 (12-20); Aspartate Amino Transferase 28 U/L (5-31); Blood Urea Nitrogen 14 mg/dL (9-16); Calcium 9.3 mg/dL (8.4-10.2); Carbon Dioxide 25 mmol/L (22-29); Chloride 106 mmol/L (96-108); Cholesterol 178 mg/dL (<200); Estimated Glomerular Filt Rate > 60; HDL Cholesterol 51 mg/dL (>40); Hemoglobin A1C 110.9289 umol/L; Magnesium 2.2 mg/dL (1.6-2.6); Potassium 4.3 mmol/L (3.3-5.1); Sodium 140 mmol/L (135-145); Total Hemoglobin (HGBA1C) 3650.3574 umol/L; Total Protein 8.0 g/dL (6.5-8.0); Triglycerides 76 mg/dL (<150)
[2025-02-05 15:39] LABS: Folate 11.7 ng/mL (> or = 4.0); Vitamin B12 469 pg/mL (200-900)
== END 2025-02-05 12:11 | disposition home or self-care (01) ==
LOC: HO.HMGCLDS 12:10
PROVIDERS: PCP Internal Medicine; Visit Provider Physician Assistant Medical
DX: Z00.00 Encounter for general adult medical examination without abnormal findings (principal)
CPT/HCPCS: 36415; 80053; 80061; 80076; 82248; 82306; 82607; 82746; 83036; 83735; 84443; 85025; 86140